=== PATIENT | female | born 1955 | race Caucasian/White ===

== ENCOUNTER 2017-01-22 10:09 | Inpatient (IN) ==
[2017-01-22] MEDS ORDERED: 0.9 % Sodium Chloride 1,000 ML IVC ONE (10:23)
--- NOTE | 2017-01-22 10:42 | Emergency Department Note ---
START Narrative - START START: START NOTE 61-year-old female history of multiple sclerosis currently evaluated by neurology at [facility] who presents to the ER due to altered mental status. She was brought in in a wheelchair by her . The patient is in stable condition awaiting evaluation by the arriving day team of Dr. Wong and Dr. Miles.
--- NOTE | 2017-01-22 11:03 | Emergency Department Note ---
Disposition Clinical Impression: UTI (urinary tract infection) Disposition: Admitted As Inpatient Condition: Fair Time of Disposition: 13:10 General Adult HPI - General Chief complaint: ED Altered Mental Status Stated complaint: AMS Time Seen by Provider: 01/22/17 10:20 Source: patient, family Limitations: no limitations Nursing Notes Reviewed: Yes Vital Signs Reviewed: Yes - History of Present Illness HPI Narrative: Mrs. Ndiaye, 61yo female, presents from home with bedside with multiple concerns. Patient has a history of MS followed by [facility] neurology, recurrent UTI followed by urologist Dr. Ndiaye, combined systolic and diastolic CHF. 9 days ago, patient was prescribed empiric augmentin. 8 days ago, patient began having visual hallucinations. 6 days ago, stopped the augmentin, after which the patient began improving (reduced hallucination) 3-4 days ago, re-started the augmentin, after which the hallucination resumed. Amidst the above, patient has not had a bowel movement in 5 days. Prior to that , her BMs were hard and painful. Amidst the above, and patient note she "hasn't been the same" since hospitalization in October wherein she had facial droop and an exacerbation of her CHF. Amidst the above, notes the patient was carbamazepine toxic. She has not been taking it recently, however. PMH: Hypertension, multiple sclerosis, atrial fibrillation, combined systolic and diastolic congestive heart failure, known bundle branch block ROS: Positive: Visual hallucinations, subjective fever, chills, abdominal pains, constipation, paroxysmal palpitations Negative: Chest pain, palpitations, fall or trauma, headache, changes in vision , worsening weakness Pain Scale: 5 - Related Data Home Medications Medication Instructions Recorded Confirmed Albuterol Sulfate [Albuterol 2 puff IH Q4H PRN 11/04/16 01/22/17 Inhaler] Amantadine [Symmetrel] 100 mg PO BID 11/04/16 01/22/17 Baclofen 20 mg PO TID 11/04/16 01/22/17 Benazepril HCl [Lotensin] 40 mg PO DAILY 11/04/16 01/22/17 BuPROPion XL (24 HR) [Wellbutrin 150 mg PO DAILY 11/04/16 01/22/17 XL] Calcium Carbonate [Coral Calcium] 1,170 mg PO BID 11/04/16 01/22/17 Dimethyl Fumarate [Tecfidera] 240 mg PO BID 11/04/16 01/22/17 FLUoxetine HCl [PROzac] 20 mg PO DAILY 11/04/16 01/22/17 Ibuprofen [Motrin] 800 mg PO BID PRN 11/04/16 01/22/17 Loratadine [Claritin] 10 mg PO DAILY 11/04/16 01/22/17 Potassium Chloride [K-Tab ER] 20 meq PO DAILY 01/22/17 01/22/17 Previous Rx's Medication Instructions Recorded Apixaban [Eliquis] 5 mg PO BID #60 tablet 11/09/16 Aspirin Enteric Coated [Aspirin EC] 81 mg PO DAILY tablet. 11/09/16 Atorvastatin [Lipitor] 40 mg PO HS tablet 11/09/16 Furosemide [Lasix] 40 mg PO BIDDIURETIC #60 tablet 11/09/16 Lisinopril [Zestril] 20 mg PO DAILY tablet 11/09/16 Metoprolol XL (24 HR) Succ [Toprol 25 mg PO DAILY #30 tab.er.24h 11/09/16 Xl] Allergies Allergy/AdvReac Type Severity Reaction Status Date / Time latex Allergy Hives Verified 01/22/17 10:16 All systems ED: reviewed and negative except as stated. Review of Systems: As Per HPI Past Medical History - Past Medical History Attestation: Yes The following information was validated with the patient. Medical history: Reports: hypertension, kidney stones Surgical history: Reports: non-contributory Psychiatric history: Reports: no psych history - Social History Smoking Status: Former smoker Smokeless Tobacco Status: No Alcohol use: Reports: none Drug use: Reports: none Physical Exam Vital Signs Reviewed General: Patient is alert, oriented, and in no acute distress. HEENT: No facial asymmetry. Head is normocephalic and atraumatic. PERRLA, EOMI. oral mucosa tacky. Trachea midline. Cardiovascular: Heart regular rate and rhythm without clicks, rubs, gallops, or murmurs. No JVD. PMI nondisplaced. Respiratory: Symmetric chest rise with poor respiratory effort. Bilateral breath sounds are clear without wheezing, crackles, or rhonchi. Abdomen: Bowel sounds present normoactive x-4 quadrants. Abdomen is soft, nondistended. Mild diffuse generalized tenderness. No rebound or guarding. Pelvic exam: External genitalia with swollen slightly erythematous labia majora. Scant blood at external urethral meatus. White substance in vaginal vestibule consistent with yeast infection. Speculum exam showed no blood in vaginal vault with no blood from cervical os. Cultures obtained. Musculoskeletal: Right upper extremity is contracted which is baseline per . Neuro: Cranial nerves II through XII without deficit. Sensation light touch intact. GCS 15. Alert and oriented 4. Skin: Warm, dry, intact. Psych: Patient's affect is appropriate for situation. - General Limitations: no limitations General appearance: alert Course Course Narrative: Chart check: Echocardiogram 01/18/17 Indication-shortness of breath Impressions: LVEF 20-25%. Mildly dilated left ventricle. Severe global left ventricular systolic function. Atypical septal motion consistent with bundle branch block. Normal RV structure and function. Valves not well visualized. Left heart catheter 11/08/16: [id number] Impressions: Moderate three-vessel CAD. LVEF 20%. Nonischemic cardiomyopathy. MRI of 11/05/16: [id number] facial droop Findings-degraded by motion. Impression-no acute infarcts. Trace subdural hematomas over both parietal convexities. Patient presents in no acute distress. She is SIRS (+) on intake vitals by tachycardia and tachypnea. We will begin sepsis workup. Unable to find prior carbamazepine level or the date of the toxicity. Will repeat carbamazepine level. Patient and defer CT had and abdomen/pelvis at this time to minimize her radiation. Vital Signs Temperature 98 F 01/22/17 10:11 Pulse Rate 110 01/22/17 10:11 Respiratory Rate 20 01/22/17 10:11 Blood Pressure 127/77 01/22/17 10:11 O2 Sat by Pulse Oximetry 88 01/22/17 10:11 Temperature 97.3 F L 01/22/17 14:16 Pulse Rate 61 01/22/17 14:16 Respiratory Rate 16 01/22/17 14:16 Blood Pressure 111/71 01/22/17 14:16 O2 Sat by Pulse Oximetry 100 01/22/17 12:57 Oxygen Delivery Oxygen Delivery Room Air Medical Decision Making - Medical Records Medical records reviewed: Yes I reviewed the patient's medical records. - Lab Data Result diagrams: 01/22/17 10:52 01/22/17 10:52 Lab Results 01/22/17 01/22/17 01/22/17 Range/Units 10:52 10:52 10:52 WBC 12.1 H (4.3-11.1) K/mcL RBC 4.33 (3.82-4.97) M/mcL Hgb 12.9 (11.5-15.4) g/dL Hct 40.5 (35.3-44.9) % MCV 93.5 (83.0-100.0) fL MCH 29.8 (28.0-33.3) pg MCHC 31.9 (31.6-35.5) g/dL RDW 14.9 H (11.5-14.5) % Plt Count 309 (140-400) K/mcL MPV 9.6 (9.4-12.4) fL Immature Gran % 1.2 (0-4) % Seg Neutrophils % 71.9 % Lymphocytes % 13.3 % Monocytes % 7.4 % Eosinophils % 5.0 % Basophils % 1.2 % Neutrophils # 8.7 (1.6-8.9) K/mcL Lymphocytes # 1.6 (0.6-4.6) K/mcL Monocytes # 0.9 (0.0-1.3) K/mcL Eosinophils # 0.6 (0.0-0.6) K/mcL Basophils # 0.1 (0.0-0.2) K/mcL PT 15.0 H (9.4-12.1) Seconds INR 1.4 APTT 44.1 H (26.0-36.0) Seconds Sodium 145 (136-145) mEq/L Potassium 4.5 (3.5-4.5) mEq/L Chloride 102 (98-109) mEq/L Carbon Dioxide 33 H (19-29) mEq/L BUN 20 (7-20) mg/dL Creatinine 0.64 (0.57-1.11) mg/dL Est GFR ( Amer) > 60 (> 60) Est GFR (Non-Af Amer) > 60 (> 60) BUN/Creatinine Ratio 31 H (6-26) Glucose 120 H (70-99) mg/dL Calculated Osmolality 304 H (280-300) Lactic Acid (0.5-2.2) mmol/L Calcium 10.5 (8.6-10.8) mg/dL Magnesium (1.6-2.6) mg/dL Total Bilirubin 0.4 (0.2-1.2) mg/dL Direct Bilirubin 0.2 (0.0-0.5) mg/dL Indirect Bilirubin 0.2 (0.0-1.2) mg/dL AST 28 (5-34) Units/L ALT 45 (0-55) Units/L Alkaline Phosphatase 117 (38-126) Units/L Troponin I (0-0.03) ng/mL Serum Total Protein 8.2 (6.0-8.3) g/dL Albumin 3.5 (3.5-5.0) g/dL Globulin 4.7 H (2.4-3.5) g/dL Albumin/Globulin Ratio 0.7 L (1.1-2.2) Lipase (8-78) Units/L Urine Color (Yellow) Urine Clarity (Clear) Urine pH (5.0-8.0) pH Units Ur Specific [place] (1.010-1.025) Urine Protein (Neg-Trace) mg/dL Urine Glucose (UA) (Normal) mg/dL Urine Ketones (Negative) mg/dL Urine Blood (Negative) Urine Nitrite (Negative) Urine Bilirubin (Negative) Urine Urobilinogen (Normal) mg/dL Ur Leukocyte Esterase (Negative) Urine Microscopic RBC (0-3) per hpf Urine Microscopic WBC (0-3) per hpf Ur Squamous Epith Cells (None-Few) per lpf Urine Bacteria (None-Few) per hpf Ur Culture Indicated? (NO) Urine Opiates Screen (Slgtyo=934) ng/mL Ur Barbiturates Screen (Bpoibg=002) ng/mL Carbamazepine (4.0-12.0) mcg/mL Ur Phencyclidine Scrn (Cutoff=25) ng/mL Ur Amphetamines Screen (Hczpow=6716) ng/mL U Benzodiazepines Scrn (Gnwcza=658) ng/mL Urine Cocaine Screen (Cutoff= 300) ng/mL U Marijuana (THC) Screen (Cutoff = 50) ng/mL Ethyl Alcohol < 10 (0-10) mg/dL Balbina species DNA (Not Detect) Chlam trachomat DNA PCR (Not Detect) Gardnerella DNA Probe (Not Detect) N.gonorrhoeae DNA (PCR) (Not Detect) Trichomonas DNA Probe (Not Detect) 01/22/17 01/22/17 01/22/17 Range/Units 10:52 10:52 11:20 WBC (4.3-11.1) K/mcL RBC (3.82-4.97) M/mcL Hgb (11.5-15.4) g/dL Hct (35.3-44.9) % MCV (83.0-100.0) fL MCH (28.0-33.3) pg MCHC (31.6-35.5) g/dL RDW (11.5-14.5) % Plt Count (140-400) K/mcL MPV (9.4-12.4) fL Immature Gran % (0-4) % Seg Neutrophils % % Lymphocytes % % Monocytes % % Eosinophils % % Basophils % % Neutrophils # (1.6-8.9) K/mcL Lymphocytes # (0.6-4.6) K/mcL Monocytes # (0.0-1.3) K/mcL Eosinophils # (0.0-0.6) K/mcL Basophils # (0.0-0.2) K/mcL PT (9.4-12.1) Seconds INR APTT (26.0-36.0) Seconds Sodium (136-145) mEq/L Potassium (3.5-4.5) mEq/L Chloride (98-109) mEq/L Carbon Dioxide (19-29) mEq/L BUN (7-20) mg/dL Creatinine (0.57-1.11) mg/dL Est GFR ( Amer) (> 60) Est GFR (Non-Af Amer) (> 60) BUN/Creatinine Ratio (6-26) Glucose (70-99) mg/dL Calculated Osmolality (280-300) Lactic Acid 2.0 (0.5-2.2) mmol/L Calcium (8.6-10.8) mg/dL Magnesium (1.6-2.6) mg/dL Total Bilirubin (0.2-1.2) mg/dL Direct Bilirubin (0.0-0.5) mg/dL Indirect Bilirubin (0.0-1.2) mg/dL AST (5-34) Units/L ALT (0-55) Units/L Alkaline Phosphatase (38-126) Units/L Troponin I 0.05 H* (0-0.03) ng/mL Serum Total Protein (6.0-8.3) g/dL Albumin (3.5-5.0) g/dL Globulin (2.4-3.5) g/dL Albumin/Globulin Ratio (1.1-2.2) Lipase (8-78) Units/L Urine Color Yellow (Yellow) Urine Clarity Turbid A (Clear) Urine pH 7.0 (5.0-8.0) pH Units Ur Specific [place] 1.020 (1.010-1.025) Urine Protein 30 H (Neg-Trace) mg/dL Urine Glucose (UA) Normal (Normal) mg/dL Urine Ketones Negative (Negative) mg/dL Urine Blood Large H (Negative) Urine Nitrite Positive A (Negative) Urine Bilirubin Negative (Negative) Urine Urobilinogen Normal (Normal) mg/dL Ur Leukocyte Esterase Large H (Negative) Urine Microscopic RBC 0-3 (0-3) per hpf Urine Microscopic WBC TNTC H (0-3) per hpf Ur Squamous Epith Cells Many H (None-Few) per lpf Urine Bacteria Moderate H (None-Few) per hpf Ur Culture Indicated? YES A (NO) Urine Opiates Screen (Kefvcc=259) ng/mL Ur Barbiturates Screen (Nljref=997) ng/mL Carbamazepine (4.0-12.0) mcg/mL Ur Phencyclidine Scrn (Cutoff=25) ng/mL Ur Amphetamines Screen (Rgdvgr=9686) ng/mL U Benzodiazepines Scrn (Aweebv=426) ng/mL Urine Cocaine Screen (Cutoff= 300) ng/mL U Marijuana (THC) Screen (Cutoff = 50) ng/mL Ethyl Alcohol (0-10) mg/dL Balbina species DNA (Not Detect) Chlam trachomat DNA PCR (Not Detect) Gardnerella DNA Probe (Not Detect) N.gonorrhoeae DNA (PCR) (Not Detect) Trichomonas DNA Probe (Not Detect) 01/22/17 01/22/17 01/22/17 Range/Units 11:20 11:38 11:38 WBC (4.3-11.1) K/mcL RBC (3.82-4.97) M/mcL Hgb (11.5-15.4) g/dL Hct (35.3-44.9) % MCV (83.0-100.0) fL MCH (28.0-33.3) pg MCHC (31.6-35.5) g/dL RDW (11.5-14.5) % Plt Count (140-400) K/mcL MPV (9.4-12.4) fL Immature Gran % (0-4) % Seg Neutrophils % % Lymphocytes % % Monocytes % % Eosinophils % % Basophils % % Neutrophils # (1.6-8.9) K/mcL Lymphocytes # (0.6-4.6) K/mcL Monocytes # (0.0-1.3) K/mcL Eosinophils # (0.0-0.6) K/mcL Basophils # (0.0-0.2) K/mcL PT (9.4-12.1) Seconds INR APTT (26.0-36.0) Seconds Sodium (136-145) mEq/L Potassium (3.5-4.5) mEq/L Chloride (98-109) mEq/L Carbon Dioxide (19-29) mEq/L BUN (7-20) mg/dL Creatinine (0.57-1.11) mg/dL Est GFR ( Amer) (> 60) Est GFR (Non-Af Amer) (> 60) BUN/Creatinine Ratio (6-26) Glucose (70-99) mg/dL Calculated Osmolality (280-300) Lactic Acid (0.5-2.2) mmol/L Calcium (8.6-10.8) mg/dL Magnesium 2.1 (1.6-2.6) mg/dL Total Bilirubin (0.2-1.2) mg/dL Direct Bilirubin (0.0-0.5) mg/dL Indirect Bilirubin (0.0-1.2) mg/dL AST (5-34) Units/L ALT (0-55) Units/L Alkaline Phosphatase (38-126) Units/L Troponin I (0-0.03) ng/mL Serum Total Protein (6.0-8.3) g/dL Albumin (3.5-5.0) g/dL Globulin (2.4-3.5) g/dL Albumin/Globulin Ratio (1.1-2.2) Lipase 38 (8-78) Units/L Urine Color (Yellow) Urine Clarity (Clear) Urine pH (5.0-8.0) pH Units Ur Specific [place] (1.010-1.025) Urine Protein (Neg-Trace) mg/dL Urine Glucose (UA) (Normal) mg/dL Urine Ketones (Negative) mg/dL Urine Blood (Negative) Urine Nitrite (Negative) Urine Bilirubin (Negative) Urine Urobilinogen (Normal) mg/dL Ur Leukocyte Esterase (Negative) Urine Microscopic RBC (0-3) per hpf Urine Microscopic WBC (0-3) per hpf Ur Squamous Epith Cells (None-Few) per lpf Urine Bacteria (None-Few) per hpf Ur Culture Indicated? (NO) Urine Opiates Screen Negative (Hquvio=828) ng/mL Ur Barbiturates Screen Negative (Pwybxg=847) ng/mL Carbamazepine 0.0 L (4.0-12.0) mcg/mL Ur Phencyclidine Scrn Negative (Cutoff=25) ng/mL Ur Amphetamines Screen Negative (Wtqocb=5093) ng/mL U Benzodiazepines Scrn Negative (Wnirmg=708) ng/mL Urine Cocaine Screen Negative (Cutoff= 300) ng/mL U Marijuana (THC) Screen Negative (Cutoff = 50) ng/mL Ethyl Alcohol (0-10) mg/dL Balbina species DNA (Not Detect) Chlam trachomat DNA PCR (Not Detect) Gardnerella DNA Probe (Not Detect) N.gonorrhoeae DNA (PCR) (Not Detect) Trichomonas DNA Probe (Not Detect) 01/22/17 Range/Units 13:00 WBC (4.3-11.1) K/mcL RBC (3.82-4.97) M/mcL Hgb (11.5-15.4) g/dL Hct (35.3-44.9) % MCV (83.0-100.0) fL MCH (28.0-33.3) pg MCHC (31.6-35.5) g/dL RDW (11.5-14.5) % Plt Count (140-400) K/mcL MPV (9.4-12.4) fL Immature Gran % (0-4) % Seg Neutrophils % % Lymphocytes % % Monocytes % % Eosinophils % % Basophils % % Neutrophils # (1.6-8.9) K/mcL Lymphocytes # (0.6-4.6) K/mcL Monocytes # (0.0-1.3) K/mcL Eosinophils # (0.0-0.6) K/mcL Basophils # (0.0-0.2) K/mcL PT (9.4-12.1) Seconds INR APTT (26.0-36.0) Seconds Sodium (136-145) mEq/L Potassium (3.5-4.5) mEq/L Chloride (98-109) mEq/L Carbon Dioxide (19-29) mEq/L BUN (7-20) mg/dL Creatinine (0.57-1.11) mg/dL Est GFR ( Amer) (> 60) Est GFR (Non-Af Amer) (> 60) BUN/Creatinine Ratio (6-26) Glucose (70-99) mg/dL Calculated Osmolality (280-300) Lactic Acid (0.5-2.2) mmol/L Calcium (8.6-10.8) mg/dL Magnesium (1.6-2.6) mg/dL Total Bilirubin (0.2-1.2) mg/dL Direct Bilirubin (0.0-0.5) mg/dL Indirect Bilirubin (0.0-1.2) mg/dL AST (5-34) Units/L ALT (0-55) Units/L Alkaline Phosphatase (38-126) Units/L Troponin I (0-0.03) ng/mL Serum Total Protein (6.0-8.3) g/dL Albumin (3.5-5.0) g/dL Globulin (2.4-3.5) g/dL Albumin/Globulin Ratio (1.1-2.2) Lipase (8-78) Units/L Urine Color (Yellow) Urine Clarity (Clear) Urine pH (5.0-8.0) pH Units Ur Specific [place] (1.010-1.025) Urine Protein (Neg-Trace) mg/dL Urine Glucose (UA) (Normal) mg/dL Urine Ketones (Negative) mg/dL Urine Blood (Negative) Urine Nitrite (Negative) Urine Bilirubin (Negative) Urine Urobilinogen (Normal) mg/dL Ur Leukocyte Esterase (Negative) Urine Microscopic RBC (0-3) per hpf Urine Microscopic WBC (0-3) per hpf Ur Squamous Epith Cells (None-Few) per lpf Urine Bacteria (None-Few) per hpf Ur Culture Indicated? (NO) Urine Opiates Screen (Zttoka=115) ng/mL Ur Barbiturates Screen (Silmmo=408) ng/mL Carbamazepine (4.0-12.0) mcg/mL Ur Phencyclidine Scrn (Cutoff=25) ng/mL Ur Amphetamines Screen (Mxtbsf=4819) ng/mL U Benzodiazepines Scrn (Piqevj=415) ng/mL Urine Cocaine Screen (Cutoff= 300) ng/mL U Marijuana (THC) Screen (Cutoff = 50) ng/mL Ethyl Alcohol (0-10) mg/dL Balbina species DNA DETECTED A (Not Detect) Chlam trachomat DNA PCR NOT DETECTED (Not Detect) Gardnerella DNA Probe Not Detected (Not Detect) N.gonorrhoeae DNA (PCR) NOT DETECTED (Not Detect) Trichomonas DNA Probe Not Detected (Not Detect) - EKG Data EKG #1 EKG attestation: Yes I reviewed and interpreted this EKG. EKG results narrative: EKG dated 22 Jan 2017 at 10:33 interpreted as Sinus rhythm with rate of 75. Baseline artifact. Intervals of MO 158, QRS was 78, QT/QTc 457/46. Extreme left axis. Appropriately discordant left bundle branch block also present on compared to EKG. interpreted to previous EKG dated 11/04/2016 show no acute ischemic changes or comparison. Attestation Statement - Attestation Attestation: I examined this patient and my medical decision-making was reviewed with the Resident Physician. I agree with the documented findings, disposition and treatment plan as described except to the extent set forth below. 61-year-old female presents ED because of altered mental status, urinary symptoms and generalized malaise. She was recently found to have a UTI and was started on Augmentin. However, no cultures were done. After starting the Augmentin she started developing hallucinations and they stopped it for a few days. The hallucinations improved but upon resuming the Augmentin, the hallucinations recurred. She has had periods of confusion. Also complains of constipation and hesitancy to urinate. No headaches. She has a history of multiple sclerosis and is bound to a wheelchair. No significant change in her baseline weakness. She was admitted to the hospital to have months ago due to facial droop and this was suspected due to the EMS. does report low- grade fevers. Patient is awake, alert and talkative. Pupils are reactive to light. Face is symmetric. He is membranes are very dry. Neck is supple without adenopathy. Chest is clear to auscultation bilaterally. No wheezes appreciated. Cardiac exam regular, tachycardic. Abdomen soft nondistended nontender. Normal bowel sounds throughout. No CVA tenderness. Contractures are noted of the arms and legs. She was given aggressive IV fluids. Urinalysis was remarkable for nitrites and leukocytes. Blood and urine were sent for culture. She is given IV Rocephin along with IV fluids and will be admitted for further workup and treatment.
[2017-01-22 11:05] LABS: INR 1.4
[2017-01-22 11:06] LABS: Basophils # 0.1 K/mcL (0.0-0.2); Basophils % 1.2 %; Eosinophils # 0.6 K/mcL (0.0-0.6); Hematocrit 40.5 % (35.3-44.9); Hemoglobin 12.9 g/dL (11.5-15.4); Immature Granulocytes % 1.2 % (0-4); Lymphocytes # 1.6 K/mcL (0.6-4.6); Lymphocytes % 13.3 %; Mean Corpuscular HGB Conc 31.9 g/dL (31.6-35.5); Mean Corpuscular Hemoglobin 29.8 pg (28.0-33.3); Mean Corpuscular Volume 93.5 fL (83.0-100.0); Mean Platelet Volume 9.6 fL (9.4-12.4); Monocytes # 0.9 K/mcL (0.0-1.3); Monocytes % 7.4 %; Neutrophils # 8.7 K/mcL (1.6-8.9); Platelet Count 309 K/mcL (140-400); Red Blood Count 4.33 M/mcL (3.82-4.97); Red Cell Distribution Width 14.9 % (11.5-14.5); Segmented Neutrophils % 71.9 %
[2017-01-22 11:08] LABS: Activated Partial Thrombo Time 44.1 Seconds (26.0-36.0)
[2017-01-22 11:16] LABS: Alanine Aminotransferase 45 Units/L (0-55); Albumin 3.5 g/dL (3.5-5.0); Albumin/Globulin Ratio 0.7 (1.1-2.2); Alkaline Phosphatase 117 Units/L (38-126); Aspartate Amino Transferase 28 Units/L (5-34); BUN/Creatinine Ratio 31 (6-26); Bilirubin,Direct 0.2 mg/dL (0.0-0.5); Bilirubin,Indirect 0.2 mg/dL (0.0-1.2); Bilirubin,Total 0.4 mg/dL (0.2-1.2); Blood Urea Nitrogen 20 mg/dL (7-20); Calcium 10.5 mg/dL (8.6-10.8); Carbon Dioxide 33 mEq/L (19-29); Chloride 102 mEq/L (98-109); Ethanol < 10 mg/dL (0-10); Globulin 4.7 g/dL (2.4-3.5); Glucose 120 mg/dL (70-99); Osmolality,Calculated 304 (280-300); Potassium 4.5 mEq/L (3.5-4.5); Sodium 145 mEq/L (136-145); Total Protein 8.2 g/dL (6.0-8.3); eGFR For African Americans > 60 (> 60); eGFR For Non-African Americans > 60 (> 60)
[2017-01-22 11:29] LABS: Bilirubin,Urine Negative (Negative); Blood,Urine Large (Negative); Clarity,Urine Turbid (Clear); Color,Urine Yellow (Yellow); Glucose,Urine (UA) Normal (Normal); Ketones,Urine Negative (Negative); Leukocyte Esterase,Urine Large (Negative); Nitrite,Urine Positive (Negative); Protein,Urine 30 mg/dL (Neg-Trace); Urobilinogen,Urine Normal (Normal)
[2017-01-22 11:31] LABS: Bacteria,Urine Moderate per hpf (None-Few); Squamous Epithelial Cell,Urine Many per lpf (None-Few); WBC,Urine TNTC per hpf (0-3)
[2017-01-22 11:35] LABS: RBC,Urine 0-3 per hpf (0-3)
[2017-01-22 11:52] LABS: Amphetamine Screen,Urine Negative ng/mL (Cutoff=1000); Barbiturate Screen,Urine Negative ng/mL (Cutoff=200); Benzodiazepines Screen,Urine Negative ng/mL (Cutoff=200); Cannabinoid Screen,Urine Negative ng/mL (Cutoff = 50); Cocaine Screen,Urine Negative ng/mL (Cutoff= 300); Opiate Screen,Urine Negative ng/mL (Cutoff=300); Phencyclidine Screen,Urine Negative ng/mL (Cutoff=25)
[2017-01-22] MEDS ORDERED: cefTRIAXone 2,000 MG in Water for inj. (sterile) 20 ML IVP ONE (11:54)
[2017-01-22 12:40] LABS: Magnesium 2.1 mg/dL (1.6-2.6)
[2017-01-22 13:53] LABS: Candida DNA ***DETECTED*** (Not Detect); Gardnerella DNA Not Detected (Not Detect); Trichomonas DNA Not Detected (Not Detect)
[2017-01-22] MEDS ORDERED: Naloxone 0.4 MG/ML INJ IVP PRN (15:41)
--- NOTE | 2017-01-22 17:08 | Internal Med History&Physical ---
Date of Encounter: 01/22/17 Time of Encounter: 16:00 Assessment and Plan (1) Acute encephalopathy Current visit: No Status: Acute Patient has been experiencing hallucinations off and on for the past week. Suspect this may be related to medication or even possibly infectious process because she does not UTI. We will obtain a CT scan to rule out any possible intracranial abnormalities. Patient denies any trauma to her head, patient is on Eliquis-possible bleed Neuro checks (2) UTI (urinary tract infection) Current visit: Yes Status: Acute Qualifiers: Urinary tract infection type: acute cystitis Hematuria presence: with hematuria Qualified Code(s): N30.01 - Acute cystitis with hematuria (3) Multiple sclerosis Current visit: No Status: Chronic Patient has a history of multiple sclerosis she is wheelchair bound she does follow with neurology at [facility]. We will continue to follow up as an outpatient in consult neurology as needed (4) Atrial fibrillation Current visit: No Status: Chronic Patient was recently diagnosed with atrial fibrillation as she has sinus rhythm controlled rate. We will continue with beta ayan as well as eliquis Qualifiers: Atrial fibrillation type: paroxysmal Qualified Code(s): I48.0 - Paroxysmal atrial fibrillation (5) DVT prophylaxis Current visit: Yes Status: Acute Patient is Eliis Internal Medicine - H&P: HPI Chief complaint: AMS Admitted From: Emergency Dept Plans for Post Hospital Care: Home History of present illness: Ms. Ndiaye is a 61 year old female past medical history of a MS followed by [facility] neurology recurrent UTIs followed by urologist combined systolic and diastolic heart failure and hypertension A. fib Information is obtained from mother who is at bedside and medical records due to patient's altered cognition. Approximately 9 days ago patient was experiencing urinary symptoms in general is made malaise she was diagnosed with UTI and was started on Augmentin. Once she was started on Augmentin she began to experience visual hallucinations after approximately 2 days of medication stopped the Augmentin and her hallucinations reduced. He then resumed the Augmentin again and then she began to hallucinate again. She also has not had any bowel movements for approximate 5 days. No fevers chills abdominal pain nausea vomiting. Patient was admitted to this hospital approximately a month ago and at that time she did have facial droop as well as A. fib RVR. She was initiated on beta ayan as well as pelvic was for anticoagulation.. She was seen by neurology and was diagnosed with nontraumatic subdural hygroma According to ER records patient did have a lactate in 2 urinalysis was positive for UTI slightly elevated leukocytosis. She has been admitted for further workup and evaluation. Presently patient is alert and oriented 3 however she does make inappropriate comments she thinks that the nurse is covered in Milena lights and wants to know why I do not lock her wheelchair so she does not fall out. Neurologically patient does follow commands. She has lower extremity weakness which is chronic and right-sided weakness which is chronic. There is no facial droop at this time we will obtain CT of her head to rule out possible stroke. I did speak with patient's mother who is at bedside in his feet power of gauge operator who agreed to CT scan. Past Med Surg Social Fam HX - Past Medical History Medical history: hypertension, kidney stones Psychiatric history: no psych history - Past Surgical History Surgical History: non-contributory - Social History Smoking Status: Former smoker Smokeless Tobacco Status: No Alcohol use: none Drug use: none - Additional Family History Additional family history: unknown- reviewed Internal Medicine - H&P: Meds Albuterol Sulfate [Albuterol Inhaler] 2 puff IH Q4H PRN 11/04/16 [History] Amantadine [Symmetrel] 100 mg PO BID 11/04/16 [History] Baclofen 20 mg PO TID 11/04/16 [History] Benazepril HCl [Lotensin] 40 mg PO DAILY 11/04/16 [History] BuPROPion XL (24 HR) [Wellbutrin XL] 150 mg PO DAILY 11/04/16 [History] Calcium Carbonate [Coral Calcium] 1,170 mg PO BID 11/04/16 [History] Dimethyl Fumarate [Tecfidera] 240 mg PO BID 11/04/16 [History] FLUoxetine HCl [PROzac] 20 mg PO DAILY 11/04/16 [History] Ibuprofen [Motrin] 800 mg PO BID PRN 11/04/16 [History] Loratadine [Claritin] 10 mg PO DAILY 11/04/16 [History] Apixaban [Eliquis] 5 mg PO BID #60 tablet 11/09/16 [Rx] Aspirin Enteric Coated [Aspirin EC] 81 mg PO DAILY tablet. 11/09/16 [Rx] Atorvastatin [Lipitor] 40 mg PO HS tablet 11/09/16 [Rx] Furosemide [Lasix] 40 mg PO BIDDIURETIC #60 tablet 11/09/16 [Rx] Lisinopril [Zestril] 20 mg PO DAILY tablet 11/09/16 [Rx] Metoprolol XL (24 HR) Succ [Toprol Xl] 25 mg PO DAILY #30 tab.er.24h 11/09/16 [ Rx] Potassium Chloride [K-Tab ER] 20 meq PO DAILY 01/22/17 [History] 3 Allergy/AdvReac Type Severity Reaction Status Date / Time latex Allergy Hives Verified 01/22/17 10:16 ROS unobtainable: due to mental status All Systems PM: A 10-system review of systems was performed and is negative for pertinent findings except as documented above in the HPI. - Constitutional Vitals: Temp Pulse Resp BP Pulse Ox 97.3 F L 61 16 111/71 100 01/22/17 14:16 01/22/17 14:16 01/22/17 14:16 01/22/17 14:16 01/22/17 12:57 General appearance: Present: A&O X 3 - Head Head exam: Present: atraumatic, normocephalic - Eye Eye exam: Present: PERRL, conjuntiva pink, sclera anicteric Pupils: Present: PERRL - Neck Neck exam general surgery: Present: supple, trachea midline. Absent: lymphadenopathy - Respiratory Respiratory exam: Present: CTAB. Absent: accessory muscle use, rales, rhonchi, wheezes - Cardiovascular Cardiovascular exam: Present: RRR, +S1, +S2. Absent: diastolic murmur, gallop, rubs, systolic murmur - GI/Abdominal GI/Abdominal exam: Present: normal bowel sounds, soft, no peritoneal signs. Absent: distended, tenderness - Extremities Exam Extremities exam: Present: warm, radial pulses palpable and symmetrical. Absent : calf tenderness, cyanotic, pedal edema - Neurological Exam Neurological exam: Present: altered, CN II-XII intact, oriented X3. Absent: pronater drift, facial droop, speech deficit Additional comments: Patient has lower extremity weakness as well as right-sided weakness which is residual from MS - Skin Skin exam: Present: dry, intact Internal Med - H&P Results - Labs CBC & Chem 7: 01/22/17 10:52 01/22/17 10:52 - EKG Data EKG shows normal: sinus rhythm - EKG Data Prior EKG available for review: yes When compared to previous EKG: there is no significant change EKG comments: 01/22/17 17:33 With left bundle branch block which was present on previous EKG - Diagnostic Studies Other Images Additional comments: Chest X-Ray 01/22/17 10:23 IMPRESSION: No active cardiopulmonary disease D/ / Carlos Christina MD / Carlos Christina MD Interpreting Provider: Carlos Christina MD
--- NOTE | 2017-01-22 18:47 | Event Note ---
Date of Encounter: 01/22/17 Time of Encounter: 17:00 Discussed with ONOFRE and agree with assessment and plan Patient with mild encephalopathy and suspect secondary to UTI and ordered CT of head to rule out any intracranial etiology which was done with further recommendations for MRI due to indeterminate study; MRI pending Continue IV antibiotics for UTI.
[2017-01-22] MEDS: APIXABAN 5 MG TABLET PO SCH (22:58)
[2017-01-22] MEDS ORDERED: Baclofen 10 MG TABLET PO PRN (23:13)
[2017-01-22] MEDS: risperiDONE 0.25 MG TABLET PO SCH (23:49)
[2017-01-22] MEDS: TECFIDERA PO SCH (23:52)
[2017-01-23] MEDS ORDERED: Melatonin 3 MG TABLET PO ONE (00:25)
[2017-01-23 01:08] LABS: Basophils # 0.1 K/mcL (0.0-0.2); Basophils % 0.7 %; Eosinophils # 0.7 K/mcL (0.0-0.6); Eosinophils % 6.3 %; Hematocrit 31.6 % (35.3-44.9); Immature Granulocytes % 1.1 % (0-4); Lymphocytes # 1.4 K/mcL (0.6-4.6); Lymphocytes % 13.4 %; Mean Corpuscular Hemoglobin 29.7 pg (28.0-33.3); Mean Corpuscular Volume 92.9 fL (83.0-100.0); Mean Platelet Volume 9.6 fL (9.4-12.4); Monocytes % 9.3 %; Neutrophils # 7.2 K/mcL (1.6-8.9); Platelet Count 226 K/mcL (140-400); Red Cell Distribution Width 14.9 % (11.5-14.5); Segmented Neutrophils % 69.2 %
[2017-01-23 01:11] LABS: Hemoglobin 10.1 g/dL (11.5-15.4)
[2017-01-23 01:20] LABS: BUN/Creatinine Ratio 29 (6-26); Blood Urea Nitrogen 15 mg/dL (7-20); Calcium 9.4 mg/dL (8.6-10.8); Carbon Dioxide 29 mEq/L (19-29); Chloride 106 mEq/L (98-109); Glucose 105 mg/dL (70-99); Osmolality,Calculated 295 (280-300); Sodium 142 mEq/L (136-145); eGFR For African Americans > 60 (> 60); eGFR For Non-African Americans > 60 (> 60)
[2017-01-23] MEDS: Metoprolol XL (24 HR) Succ 25 MG TAB.ER.24H PO SCH (08:55)
[2017-01-23] MEDS: Aspirin Enteric Coated 81 MG Tablet PO SCH (08:55)
[2017-01-23] MEDS: APIXABAN 5 MG TABLET PO SCH ×2 (08:56→21:15)
[2017-01-23] MEDS: Loratadine 10 MG TABLET PO SCH (08:56)
[2017-01-23] MEDS: TECFIDERA PO SCH ×2 (08:58→21:15)
[2017-01-23] MEDS ORDERED: cefTRIAXone 1,000 MG in Water for inj. (sterile) 10 ML IVP SCH (09:00)
[2017-01-23] MEDS ORDERED: Fluconazole 100 MG TABLET PO ONE (09:46)
--- NOTE | 2017-01-23 09:50 | Internal Med Progress Note ---
<Michael Durant - Last Filed: 01/23/17 09:48> Date of Encounter: 01/23/17 Time of Encounter: 09:48 - Assessment and plan (1) Acute encephalopathy Current Visit: No Status: Acute Assessment and plan: Appears to be resolved at this time. Patient is no longer having hallucinations. was at bedside who feels that she is back at her baseline. Likely related to urinary tract infection. (2) UTI (urinary tract infection) Current Visit: Yes Status: Acute Assessment and plan: Likely bacterial as well as evidence of candidiasis. Patient has history of multiple Escherichia coli infections that have been pansensitive. Patient also has PCR positive vaginal swab for Balbina. Appears to be clinically improving. Continue Rocephin. We will give a one-time dose of oral fluconazole. Await culture results and tailor antibiotics based on culture results. Qualifiers: Urinary tract infection type: acute cystitis Hematuria presence: with hematuria Qualified Code(s): N30.01 - Acute cystitis with hematuria (3) Multiple sclerosis Current Visit: No Status: Chronic Assessment and plan: Stable. Appears to be baseline. Continue home meds. (4) Atrial fibrillation Current Visit: No Status: Chronic Assessment and plan: Stable. Rate controlled. Continue beta ayan and Eliquis for anticoagulation. Qualifiers: Atrial fibrillation type: paroxysmal Qualified Code(s): I48.0 - Paroxysmal atrial fibrillation (5) DVT prophylaxis Current Visit: Yes Status: Acute Assessment and plan: Currently on Eliquis - Subjective Interval history: Patient seen and examined at bedside. She states that she feels much better today. She states that her hallucinations has resolved. She still having good urine output. She has fever, chills, chest pain, shortness of breath, confusion. - Constitutional Vitals: Temp Pulse Resp BP Pulse Ox 97.6 F 80 18 113/76 95 01/23/17 09:32 01/23/17 09:32 01/23/17 09:32 01/23/17 09:32 01/23/17 09:32 General appearance: Present: A&O X 3, pleasant, no acute distress - Respiratory Respiratory exam: Present: CTAB. Absent: rales, rhonchi, wheezes - Cardiovascular Cardiovascular exam: Present: RRR. Absent: gallop, rubs, systolic murmur - GI/Abdominal GI/Abdominal exam: Present: normal bowel sounds, soft. Absent: distended, tenderness - Neurological Exam Neurological exam: Present: alert, CN II-XII intact, oriented X3 - Psychiatric Psychiatric exam: Present: normal affect, normal mood Internal Medicine: Result - Labs CBC & Chem 7: 01/23/17 00:54 01/23/17 00:54 Labs: Short CBC 01/23/17 Range/Units 00:54 WBC 10.4 (4.3-11.1) K/mcL Hgb 10.1 L D (11.5-15.4) g/dL Hct 31.6 L (35.3-44.9) % Plt Count 226 (140-400) K/mcL Neutrophils # 7.2 (1.6-8.9) K/mcL BMP 01/23/17 00:54 Sodium 142 Potassium 4.0 Chloride 106 Carbon Dioxide 29 BUN 15 Creatinine 0.51 L Glucose 105 H Calcium 9.4 Cardiac Enzymes 01/22/17 01/23/17 01/23/17 Range/Units 17:56 00:54 06:08 Troponin I 0.05 H* 0.05 H* 0.05 H* (0-0.03) ng/mL - ABG Interpretation ABG results: PT/INR, D-dimer PT 15.0 Seconds (9.4-12.1) H 01/22/17 10:52 - Impressions Impressions Head CT 01/22/17 16:43 IMPRESSION: Multiple old infarcts. Multifocal small-vessel ischemic change No acute infarct or hemorrhage. Given the background of abnormal low attenuation, a subtle superimposed recent ischemic focus would be difficult to exclude without MRI D/ / Jesus Vickers / Jesus Vickers Interpreting Provider: Jesus Vickers Brain MRI 01/22/17 18:45 IMPRESSION: No acute infarct. Numerous areas of encephalomalacia from remote insults. There is also multifocal small-vessel ischemic change and gliosis. Mixed signal extra-axial collections are again noted in the posterior frontal parietal regions. These do not appear grossly changed allowing for differences in slice selection. These are likely chronic. D/ / Jesus Vickers / Jesus Vickers Interpreting Provider: Jesus Vickers Consult Discharge Plan - Plan Referrals: Aissatou Delgado MD [Primary Care Provider] - <Chapincito Hammond - Last Filed: 01/23/17 15:09> Date of Encounter: 01/23/17 - Constitutional Vitals: Temp Pulse Resp BP Pulse Ox 97.2 F L 75 18 95/64 95 01/23/17 11:03 01/23/17 11:03 01/23/17 11:03 01/23/17 11:03 01/23/17 11:03 Internal Medicine: Result - Labs CBC & Chem 7: 01/23/17 00:54 01/23/17 00:54 Labs: Short CBC 01/23/17 Range/Units 00:54 WBC 10.4 (4.3-11.1) K/mcL Hgb 10.1 L D (11.5-15.4) g/dL Hct 31.6 L (35.3-44.9) % Plt Count 226 (140-400) K/mcL Neutrophils # 7.2 (1.6-8.9) K/mcL BMP 01/23/17 00:54 Sodium 142 Potassium 4.0 Chloride 106 Carbon Dioxide 29 BUN 15 Creatinine 0.51 L Glucose 105 H Calcium 9.4 Cardiac Enzymes 01/22/17 01/23/17 01/23/17 Range/Units 17:56 00:54 06:08 Troponin I 0.05 H* 0.05 H* 0.05 H* (0-0.03) ng/mL - ABG Interpretation ABG results: PT/INR, D-dimer PT 15.0 Seconds (9.4-12.1) H 01/22/17 10:52 - Impressions Impressions Head CT 01/22/17 16:43 IMPRESSION: Multiple old infarcts. Multifocal small-vessel ischemic change No acute infarct or hemorrhage. Given the background of abnormal low attenuation, a subtle superimposed recent ischemic focus would be difficult to exclude without MRI D/ / Jesus Vickers / Jesus Vickers Interpreting Provider: Jesus Vickers Brain MRI 01/22/17 18:45 IMPRESSION: No acute infarct. Numerous areas of encephalomalacia from remote insults. There is also multifocal small-vessel ischemic change and gliosis. Mixed signal extra-axial collections are again noted in the posterior frontal parietal regions. These do not appear grossly changed allowing for differences in slice selection. These are likely chronic. D/ / Jesus Vickers / Jesus Vickers Interpreting Provider: Jesus Vickers - Attending Attestation I conducted a face to face diagnostic evaluation of this patient and my medical decision-making was reviewed with the Resident Physician, Dr. Michael Durant. I agree with the documented findings, disposition and treatment plan as described except to the extent set forth below: Patient is awake alert and oriented. Heart is regular. Lungs are clear. Abdomen soft and nontender. Continue with ceftriaxone for UTI. Follow-up culture and sensitivities. Resume diet.
[2017-01-23] MEDS: Furosemide 40 MG TABLET PO SCH ×2 (10:59→17:51)
[2017-01-23] MEDS: Lisinopril 20 MG TABLET PO SCH (11:00)
[2017-01-23] MEDS: Baclofen 10 MG TABLET PO SCH ×2 (17:51→21:15)
[2017-01-23] MEDS: risperiDONE 0.25 MG TABLET PO SCH (21:14)
[2017-01-24 03:18] LABS: Basophils # 0.1 K/mcL (0.0-0.2); Basophils % 0.7 %; Eosinophils # 0.5 K/mcL (0.0-0.6); Eosinophils % 4.8 %; Hematocrit 31.9 % (35.3-44.9); Hemoglobin 10.4 g/dL (11.5-15.4); Immature Granulocytes % 1.3 % (0-4); Lymphocytes # 1.3 K/mcL (0.6-4.6); Lymphocytes % 12.9 %; Mean Corpuscular HGB Conc 32.6 g/dL (31.6-35.5); Mean Corpuscular Hemoglobin 30.1 pg (28.0-33.3); Mean Corpuscular Volume 92.5 fL (83.0-100.0); Mean Platelet Volume 9.7 fL (9.4-12.4); Monocytes # 0.9 K/mcL (0.0-1.3); Monocytes % 8.3 %; Neutrophils # 7.4 K/mcL (1.6-8.9); Platelet Count 212 K/mcL (140-400); Red Blood Count 3.45 M/mcL (3.82-4.97); Red Cell Distribution Width 15.5 % (11.5-14.5)
[2017-01-24 03:35] LABS: BUN/Creatinine Ratio 23 (6-26); Blood Urea Nitrogen 12 mg/dL (7-20); Calcium 9.2 mg/dL (8.6-10.8); Carbon Dioxide 30 mEq/L (19-29); Chloride 106 mEq/L (98-109); Glucose 109 mg/dL (70-99); Magnesium 1.7 mg/dL (1.6-2.6); Osmolality,Calculated 296 (280-300); Potassium 4.1 mEq/L (3.5-4.5); Sodium 143 mEq/L (136-145); eGFR For African Americans > 60 (> 60); eGFR For Non-African Americans > 60 (> 60)
[2017-01-24] MEDS: levoFLOXacin 750 MG TABLET PO SCH (10:16)
[2017-01-24] MEDS: Baclofen 10 MG TABLET PO SCH ×3 (10:16→20:13)
[2017-01-24] MEDS: Aspirin Enteric Coated 81 MG Tablet PO SCH (10:16)
[2017-01-24] MEDS: Loratadine 10 MG TABLET PO SCH (10:17)
[2017-01-24] MEDS: Lisinopril 20 MG TABLET PO SCH (10:17)
[2017-01-24] MEDS: APIXABAN 5 MG TABLET PO SCH ×2 (10:17→20:13)
[2017-01-24] MEDS: Metoprolol XL (24 HR) Succ 25 MG TAB.ER.24H PO SCH (10:17)
[2017-01-24] MEDS: Furosemide 40 MG TABLET PO SCH ×2 (10:17→17:12)
[2017-01-24] MEDS: TECFIDERA PO SCH (10:22)
[2017-01-24] MEDS: TECFIDERA 240 MG PO SCH ×2 (12:20→20:15)
--- NOTE | 2017-01-24 14:45 | Electrocardiograph Report ---
[address] [address] Test Date: 2017-01-22 Pat Name: Amber Ndiaye Department: 104 Room: 2A43 Gender: F Maintenance Department Manager: : 1955 Requested By: Arturo Sena Order Number: [id number] Reading MD: Salvador Shipman Measurements Intervals [place] Rate: 75 P: 46 HI: 158 QRS: -39 QRSD: 178 T: 104 QT: 457 QTc: 486 Interpretive Statements SINUS RHYTHM POSSIBLE LEFT ATRIAL ENLARGEMENT MARKED LEFT AXIS DEVIATION LEFT BUNDLE BRANCH BLOCK Electronically Signed On 01-24-2017 14:43:30 EST by Salvador Shipman
--- NOTE | 2017-01-24 16:04 | Internal Med Progress Note ---
<Michael Durant - Last Filed: 01/24/17 16:02> Date of Encounter: 01/24/17 Time of Encounter: 16:02 - Assessment and plan (1) Acute encephalopathy Current Visit: No Status: Acute Assessment and plan: Improving. Patient hallucinations are improved. was at bedside who feels that she is back at her baseline other than mild hallucinations. Likely related to urinary tract infection. CT head and brain MRI was negative for anything acute. (2) UTI (urinary tract infection) Current Visit: Yes Status: Acute Assessment and plan: Secondary to Pseudomonas. Pansensitive. Patient transitioned to by mouth Levaquin today. Possible discharge tomorrow, we will treat for a total of 14 days given history of neurogenic bladder in the setting of MS. Qualifiers: Urinary tract infection type: acute cystitis Hematuria presence: with hematuria Qualified Code(s): N30.01 - Acute cystitis with hematuria (3) Multiple sclerosis Current Visit: No Status: Chronic Assessment and plan: Stable. Appears to be baseline. Continue home meds. (4) Atrial fibrillation Current Visit: No Status: Chronic Assessment and plan: Stable. Rate controlled. Continue beta ayan and Eliquis for anticoagulation. Qualifiers: Atrial fibrillation type: paroxysmal Qualified Code(s): I48.0 - Paroxysmal atrial fibrillation (5) Vaginal candidiasis Current Visit: Yes Status: Acute Assessment and plan: Likely related to recent antibiotic use. Patient given a one-time dose of fluconazole yesterday. She has no complaints today. (6) DVT prophylaxis Current Visit: Yes Status: Acute Assessment and plan: Currently on Eliquis - Subjective Interval history: Patient seen and examined at bedside. She states that she feels much better today. states that she had some mild hallucinations this morning, however per patient they are less scary. She still having good urine output. She has fever, chills, chest pain, shortness of breath, confusion. - Constitutional Vitals: Temp Pulse Resp BP Pulse Ox 97.4 F L 60 16 98/56 95 01/24/17 11:52 01/24/17 11:52 01/24/17 11:52 01/24/17 11:52 01/24/17 11:52 General appearance: Present: A&O X 3, pleasant, no acute distress - Respiratory Respiratory exam: Present: CTAB. Absent: rales, rhonchi, wheezes - Cardiovascular Cardiovascular exam: Present: RRR. Absent: gallop, rubs, systolic murmur - GI/Abdominal GI/Abdominal exam: Present: normal bowel sounds, soft. Absent: distended, tenderness - Extremities Exam Extremities exam: Present: warm. Absent: pedal edema, tenderness - Neurological Exam Neurological exam: Present: alert, oriented X3, no focal deficits (No acute changes) Internal Medicine: Result - Labs CBC & Chem 7: 01/24/17 02:55 01/24/17 02:55 Labs: Short CBC 01/24/17 Range/Units 02:55 WBC 10.3 (4.3-11.1) K/mcL Hgb 10.4 L (11.5-15.4) g/dL Hct 31.9 L (35.3-44.9) % Plt Count 212 (140-400) K/mcL Neutrophils # 7.4 (1.6-8.9) K/mcL BMP 01/24/17 02:55 Sodium 143 Potassium 4.1 Chloride 106 Carbon Dioxide 30 H BUN 12 Creatinine 0.52 L Glucose 109 H Calcium 9.2 - ABG Interpretation ABG results: PT/INR, D-dimer PT 15.0 Seconds (9.4-12.1) H 01/22/17 10:52 Consult Discharge Plan - Plan Referrals: Aissatou Delgado MD [Primary Care Provider] - <Chapincito Hammond - Last Filed: 01/24/17 20:04> Date of Encounter: 01/24/17 - Constitutional Vitals: Temp Pulse Resp BP Pulse Ox 97.9 F 88 16 115/77 98 01/24/17 16:21 01/24/17 16:21 01/24/17 16:21 01/24/17 16:21 01/24/17 16:21 Internal Medicine: Result - Labs CBC & Chem 7: 01/24/17 02:55 01/24/17 02:55 Labs: Short CBC 01/24/17 Range/Units 02:55 WBC 10.3 (4.3-11.1) K/mcL Hgb 10.4 L (11.5-15.4) g/dL Hct 31.9 L (35.3-44.9) % Plt Count 212 (140-400) K/mcL Neutrophils # 7.4 (1.6-8.9) K/mcL BMP 01/24/17 02:55 Sodium 143 Potassium 4.1 Chloride 106 Carbon Dioxide 30 H BUN 12 Creatinine 0.52 L Glucose 109 H Calcium 9.2 - ABG Interpretation ABG results: PT/INR, D-dimer PT 15.0 Seconds (9.4-12.1) H 01/22/17 10:52 - Attending Attestation I conducted a face to face diagnostic evaluation of this patient and my medical decision-making was reviewed with the Resident Physician, Dr. Michael Durant. I agree with the documented findings, disposition and treatment plan as described except to the extent set forth below: Patient is still confused. As reported by patient's her mental status has improved but she still has active visual hallucinations. Plan: Continue with antibiotics. Monitor clinically.
[2017-01-24] MEDS: risperiDONE 0.25 MG TABLET PO SCH (20:13)
[2017-01-25] MEDS ORDERED: Ziprasidone injection 20 MG/ML VIAL IM ONE (02:36)
--- NOTE | 2017-01-25 02:58 | Event Note ---
Date of Encounter: 01/25/17 Time of Encounter: 02:49 patient was seen upon request of RN. Patient has been Hallucinating, biting the nurses, family is upset as they were told patient will be [facility]. Chart reviewed and noted that patient came in with hallucinations and noted to have Pseudomonas UTI. It was documented that patient is improving and she will be discharged in am. says her hallucinations are actually worsening and he has noted any improvements. patient says she see people in room who are trying to kill her and she wants to go home. She is awake , agitated but not oriented to time, place , person. Phsyical examination is unremarkable with clear chest, Heart RRR,S1S2 , Abd soft . Due to advanced MS she is bed ridden and has one upper extremity weakness also. She did not cooperate in neuro exam and did not let me see her tongue if it is bitten. She is breathing compfortably and handling secreations well. 1- Hallucinations/ Acute Psychosis ? etiology. Patient is rather younger and already on abx x 3 days. Might need to broaden DDx. She has advanced MS though MRI did not show any new lesion but it was a non contrast MRI. Therefore we need to consider MS exacerbation. Will not give steroid now but rather suggest to involve Neurolgy in am first. For now give one dose of Geodone for symptomatic control for hallucinations and aggressive behavior. If symptoms are not better perhaps might have to transfer [facility] to her Neurologist. D/w family. Qs answered. d/w RN.
[2017-01-25] MEDS ORDERED: Water for inj. (sterile) 10 ML IV ONE (03:09)
[2017-01-25 04:14] LABS: Basophils # 0.1 K/mcL (0.0-0.2); Basophils % 0.5 %; Eosinophils # 0.3 K/mcL (0.0-0.6); Eosinophils % 1.8 %; Hematocrit 33.8 % (35.3-44.9); Hemoglobin 11.1 g/dL (11.5-15.4); Lymphocytes # 1.2 K/mcL (0.6-4.6); Lymphocytes % 8.5 %; Mean Corpuscular HGB Conc 32.8 g/dL (31.6-35.5); Mean Corpuscular Hemoglobin 30.2 pg (28.0-33.3); Mean Corpuscular Volume 91.8 fL (83.0-100.0); Mean Platelet Volume 9.9 fL (9.4-12.4); Monocytes % 7.1 %; Neutrophils # 11.5 K/mcL (1.6-8.9); Platelet Count 226 K/mcL (140-400); Red Blood Count 3.68 M/mcL (3.82-4.97); Red Cell Distribution Width 15.4 % (11.5-14.5); Segmented Neutrophils % 81.1 %
[2017-01-25 04:27] LABS: BUN/Creatinine Ratio 27 (6-26); Blood Urea Nitrogen 15 mg/dL (7-20); Calcium 9.8 mg/dL (8.6-10.8); Carbon Dioxide 30 mEq/L (19-29); Chloride 104 mEq/L (98-109); Glucose 118 mg/dL (70-99); Magnesium 1.6 mg/dL (1.6-2.6); Osmolality,Calculated 298 (280-300); Potassium 3.9 mEq/L (3.5-4.5); Sodium 143 mEq/L (136-145); eGFR For African Americans > 60 (> 60); eGFR For Non-African Americans > 60 (> 60)
[2017-01-25] MEDS: Lisinopril 20 MG TABLET PO SCH (09:44)
[2017-01-25] MEDS: APIXABAN 5 MG TABLET PO SCH ×2 (09:45→20:22)
[2017-01-25] MEDS: Metoprolol XL (24 HR) Succ 25 MG TAB.ER.24H PO SCH (09:45)
[2017-01-25] MEDS: Baclofen 10 MG TABLET PO SCH ×2 (09:45→14:12)
[2017-01-25] MEDS: levoFLOXacin 750 MG TABLET PO SCH (09:45)
[2017-01-25] MEDS: Aspirin Enteric Coated 81 MG Tablet PO SCH (09:45)
[2017-01-25] MEDS: Loratadine 10 MG TABLET PO SCH (09:45)
[2017-01-25] MEDS: Furosemide 40 MG TABLET PO SCH (09:49)
[2017-01-25] MEDS: TECFIDERA 240 MG PO SCH ×2 (10:22→20:22)
[2017-01-25] MEDS ORDERED: Haloperidol Lactate 5 MG/ML VIAL IM PRN (10:25)
--- NOTE | 2017-01-25 10:28 | Internal Med Progress Note ---
<Michael Durant - Last Filed: 01/25/17 10:48> Date of Encounter: 01/25/17 Time of Encounter: 10:26 - Assessment and plan (1) Acute encephalopathy Current Visit: No Status: Acute Assessment and plan: Slightly worse overnight. Patient hallucinations are improved this morning after Geodon but did have episodes overnight. Likely related to urinary tract infection, however acute delirium can also be contributing. CT head and brain MRI was negative for acute process. Will order Haldol 1 mg IM as needed for agitation. Patient is on amantadine which can cause psychosis, we will investigate how long the patient's been on this and may discontinue as it could be contributing to her symptoms. (2) UTI (urinary tract infection) Current Visit: Yes Status: Acute Assessment and plan: Secondary to Pseudomonas. Pansensitive. Patient transitioned to by mouth Levaquin today, today is day 2 of Levaquin. We will plan to treat for a total of 14 days given history of neurogenic bladder in the setting of MS. Qualifiers: Urinary tract infection type: acute cystitis Hematuria presence: with hematuria Qualified Code(s): N30.01 - Acute cystitis with hematuria (3) Multiple sclerosis Current Visit: No Status: Chronic Assessment and plan: Stable. Appears to be baseline. Continue home meds. If patient's symptoms do not improve tomorrow after 2 days of antibiotics will consider neurology and/or psychiatry consult (4) Atrial fibrillation Current Visit: No Status: Chronic Assessment and plan: Stable. Rate controlled. Continue beta ayan and Eliquis for anticoagulation. Qualifiers: Atrial fibrillation type: paroxysmal Qualified Code(s): I48.0 - Paroxysmal atrial fibrillation (5) Vaginal candidiasis Current Visit: Yes Status: Acute Assessment and plan: Likely related to recent antibiotic use. Patient given a one-time dose of fluconazole the day after admission. (6) DVT prophylaxis Current Visit: Yes Status: Acute Assessment and plan: Currently on Eliquis - Subjective Interval history: Patient seen and examined at bedside. Patient is somewhat lethargic today after receiving geodon last night for hallucinations and agitation. At this time she is awake and responsive to verbal stimuli but minimally verbal. She has no specific complaints. She denies hallucinations. - Constitutional Vitals: Temp Pulse Resp BP Pulse Ox 97.7 F 74 17 129/66 97 01/25/17 07:16 01/25/17 07:16 01/25/17 07:16 01/25/17 07:16 01/25/17 07:16 General appearance: Present: A&O X 3, pleasant, no acute distress - Respiratory Respiratory exam: Present: CTAB. Absent: rales, rhonchi, wheezes - Cardiovascular Cardiovascular exam: Present: irregular rhythm. Absent: gallop, rubs, systolic murmur - Extremities Exam Extremities exam: Present: warm. Absent: pedal edema, tenderness - Neurological Exam Neurological exam: Present: alert, altered (minimally verbal but responsive to verbal stimuli), no focal deficits Internal Medicine: Result - Labs CBC & Chem 7: 01/25/17 03:46 01/25/17 03:46 Labs: Short CBC 01/25/17 Range/Units 03:46 WBC 14.1 H (4.3-11.1) K/mcL Hgb 11.1 L (11.5-15.4) g/dL Hct 33.8 L (35.3-44.9) % Plt Count 226 (140-400) K/mcL Neutrophils # 11.5 H (1.6-8.9) K/mcL BMP 01/25/17 03:46 Sodium 143 Potassium 3.9 Chloride 104 Carbon Dioxide 30 H BUN 15 Creatinine 0.55 L Glucose 118 H Calcium 9.8 - ABG Interpretation ABG results: PT/INR, D-dimer PT 15.0 Seconds (9.4-12.1) H 01/22/17 10:52 Consult Discharge Plan - Plan Referrals: Aissatou Delgado MD [Primary Care Provider] - <Luis M Hernandez H - Last Filed: 01/25/17 12:36> Date of Encounter: 01/25/17 - Constitutional Vitals: Temp Pulse Resp BP Pulse Ox 98.3 F 84 17 117/77 96 01/25/17 11:47 01/25/17 11:47 01/25/17 11:47 01/25/17 11:47 01/25/17 11:47 Internal Medicine: Result - Labs CBC & Chem 7: 01/25/17 03:46 01/25/17 03:46 Labs: Short CBC 01/25/17 Range/Units 03:46 WBC 14.1 H (4.3-11.1) K/mcL Hgb 11.1 L (11.5-15.4) g/dL Hct 33.8 L (35.3-44.9) % Plt Count 226 (140-400) K/mcL Neutrophils # 11.5 H (1.6-8.9) K/mcL BMP 01/25/17 03:46 Sodium 143 Potassium 3.9 Chloride 104 Carbon Dioxide 30 H BUN 15 Creatinine 0.55 L Glucose 118 H Calcium 9.8 - ABG Interpretation ABG results: PT/INR, D-dimer PT 15.0 Seconds (9.4-12.1) H 01/22/17 10:52 - Attending Attestation Acute metabolic encephalopathy secondary to urinary tract infection with pansensitive pseudomonas Continue Levaquin Constipation, check ammonia and give 1 dose of lactulose I examined this patient and my medical decision-making was reviewed with the Resident Physician. I agree with the documented findings, disposition and treatment plan as described except to the extent set forth below.
[2017-01-25] MEDS ORDERED: Lactulose Oral Soln 20 GM/30 ML UDC PO ONE (12:29)
[2017-01-25] MEDS ORDERED: Baclofen 10 MG TABLET PO SCH (21:00)
[2017-01-26 06:49] LABS: Basophils # 0.1 K/mcL (0.0-0.2); Basophils % 0.3 %; Eosinophils % 0.2 %; Hemoglobin 11.5 g/dL (11.5-15.4); Immature Granulocytes % 0.8 % (0-4); Lymphocytes % 4.6 %; Mean Corpuscular HGB Conc 31.9 g/dL (31.6-35.5); Mean Platelet Volume 9.5 fL (9.4-12.4); Monocytes # 1.3 K/mcL (0.0-1.3); Monocytes % 5.8 %; Neutrophils # 19.3 K/mcL (1.6-8.9); Platelet Count 259 K/mcL (140-400); Red Blood Count 3.83 M/mcL (3.82-4.97); Red Cell Distribution Width 15.4 % (11.5-14.5); Segmented Neutrophils % 88.3 %
[2017-01-26] MEDS ORDERED: Clotrimazole Vag CRM 45 GM TUBE VG SCH (09:00)
[2017-01-26] MEDS ORDERED: Piperacillin/Tazobactam 3.375 GM/200 ML BAG IVPB SCH ×2 (09:00→16:00)
[2017-01-26 09:02] LABS: INR 1.6; Prothrombin Time 17.7 Seconds (9.4-12.1)
[2017-01-26 09:10] LABS: BUN/Creatinine Ratio 29 (6-26); Blood Urea Nitrogen 15 mg/dL (7-20); Calcium 10.1 mg/dL (8.6-10.8); Carbon Dioxide 30 mEq/L (19-29); Chloride 102 mEq/L (98-109); Glucose 113 mg/dL (70-99); Osmolality,Calculated 300 (280-300); Potassium 3.6 mEq/L (3.5-4.5); Sodium 144 mEq/L (136-145); eGFR For African Americans > 60 (> 60); eGFR For Non-African Americans > 60 (> 60)
[2017-01-26 09:11] LABS: Albumin 3.2 g/dL (3.5-5.0); Albumin/Globulin Ratio 0.8 (1.1-2.2); Bilirubin,Direct 0.2 mg/dL (0.0-0.5); Bilirubin,Indirect 0.3 mg/dL (0.0-1.2); Bilirubin,Total 0.5 mg/dL (0.2-1.2); Magnesium 1.7 mg/dL (1.6-2.6); Total Protein 7.2 g/dL (6.0-8.3)
--- NOTE | 2017-01-26 10:30 | Neurology - Consult Note ---
Date of Encounter: 01/26/17 Time of Encounter: 08:10 Assessment and Plan (1) Acute encephalopathy Current Visit: No Status: Acute This patient who has a advanced multiple sclerosis along with history of atrial fibrillation and with this recurrent UTIs is being admitted with UTI infection has been treated with antibiotics and having hallucinations. It is quite common in these patient who has very little cortical reserve in the brain and with any kind of infection or metabolic derangement they can start hallucinating and could have significant mental status changes. As she continued to hallucinating and has received neuroleptics and now is been having these twitching of the face which seems to be more like a complex partial seizures. She had one during the examination lasted about a minute and then resolved spontaneously. Suggested to give her IV or IM dose of Ativan she is getting EEG as well. She probably may need to be on some anticonvulsive medication if she continued to have more of these spells but at this time I would treated with symptomatically with IV Ativan only She has been treated with Risperdal as an outpatient and recently was given Geodon, suggest to discontinue as it may make her symptoms worse As long as last hallucinations are not too bad. Do not have to treat them as it is likely related to underlying infection and medication side effect If further has hallucinations get really bad can be treated with low-dose of Seroquel 25 mg at bedtime Continue to treat her underlying infection check for any other metabolic derangement and particularly make sure that patient is not dehydrated get swallowing evaluation and she is stable enough she can be giving oral fluids , otherwise she may need an IV fluids as dehydration would probably make her symptoms worse currently patient is nothing by mouth. No sign of MS exacerbation at this time do not think that we need to do anything for her MS right now considering that she has been having a lot of other issues. We will review the EEG if abnormal she may need to be on anticonvulsant medication at this point I suspect that could be related to the side effects of all these neuroleptics and antibiotics that she has been on (2) Multiple sclerosis Current Visit: No Status: Chronic She has advanced multiple sclerosis has been maintained on TECFEDIRA on hold for now can be resumed later (3) Nontraumatic subdural hygroma Current Visit: No Status: Acute was noted on imaging studies no evidence of any active bleed (4) UTI (urinary tract infection) Current Visit: Yes Status: Acute on antibiotics continue as per primary team may need UROLOGY consult for long preventive treatment options Qualifiers: Urinary tract infection type: acute cystitis Hematuria presence: with hematuria Qualified Code(s): N30.01 - Acute cystitis with hematuria History of Present Illness HPI: Ms. Ndiaye is a 61 year old female with past medical history of advance MS followed by [facility] neurology, recurrent UTIs, hypertension and A. fib admitted with UTI and hallucinations, as per records pt having UTI symptoms for the past week was on Augmentin. Once she was started on Augmentin she began to experience visual hallucinations so it was discontinued but at the same time she was also started on RISPERIDAL by her nurse practitioner. Augmentin was restarted and she began to hallucinate again. She also has not had any bowel movements for approximate 5 days. No fevers chills abdominal pain nausea vomiting. Patient was admitted to this hospital approximately a month ago and at that time she did have facial droop as well as A. fib RVR. She was initiated on beta ayan as well as anticoagulation.. She was seen by neurology and was diagnosed with nontraumatic subdural hygroma at the time of admission she was alert and oriented 3 however she does make inappropriate comments and was confused off and on, Since in the hospital she was started on Levaquin she was hallucinating again and she was given Geodon injection and after that she became more confused and according to the he has noted that she been having this twitching of the face off and on since then. Twitching predominantly on the left side of the face stating that she did not respond last up to several minutes and then resolve spontaneously she is very tired and usually do not respond much after the event. Earlier she had an MRI of the brain that did not show any acute abnormality except chronic changes related to her MS no evidence of any acute stroke on any active demyelinating plaque. She is also on amantadine as well as baclofen for her spasticity Past Med Surg Social Fam HX - Past Medical History Medical history: hypertension, kidney stones Psychiatric history: no psych history - Past Surgical History Surgical History: non-contributory - Social History Smoking Status: Former smoker Smokeless Tobacco Status: No Alcohol use: none Drug use: none Medications and Allergies Albuterol Sulfate [Albuterol Inhaler] 2 puff IH Q4H PRN 11/04/16 [History] Amantadine [Symmetrel] 100 mg PO BID 11/04/16 [History] Baclofen 20 mg PO TID 11/04/16 [History] Benazepril HCl [Lotensin] 40 mg PO DAILY 11/04/16 [History] BuPROPion XL (24 HR) [Wellbutrin XL] 150 mg PO DAILY 11/04/16 [History] Calcium Carbonate [Coral Calcium] 1,170 mg PO BID 11/04/16 [History] Dimethyl Fumarate [Tecfidera] 240 mg PO BID 11/04/16 [History] FLUoxetine HCl [PROzac] 20 mg PO DAILY 11/04/16 [History] Ibuprofen [Motrin] 800 mg PO BID PRN 11/04/16 [History] Loratadine [Claritin] 10 mg PO DAILY 11/04/16 [History] Apixaban [Eliquis] 5 mg PO BID #60 tablet 11/09/16 [Rx] Aspirin Enteric Coated [Aspirin EC] 81 mg PO DAILY tablet. 11/09/16 [Rx] Atorvastatin [Lipitor] 40 mg PO HS tablet 11/09/16 [Rx] Furosemide [Lasix] 40 mg PO BIDDIURETIC #60 tablet 11/09/16 [Rx] Lisinopril [Zestril] 20 mg PO DAILY tablet 11/09/16 [Rx] Metoprolol XL (24 HR) Succ [Toprol Xl] 25 mg PO DAILY #30 tab.er.24h 11/09/16 [ Rx] Potassium Chloride [K-Tab ER] 20 meq PO DAILY 01/22/17 [History] 3 Allergy/AdvReac Type Severity Reaction Status Date / Time latex Allergy Hives Verified 01/22/17 10:16 All Systems: A 10-system review of systems was performed and is negative for pertinent findings except as documented above in the HPI. Physical Examination - Vital Signs Vital Signs: Initial Vital Signs Temp Pulse Resp BP Pulse Ox 98 F 110 20 127/77 88 01/22/17 10:11 01/22/17 10:11 01/22/17 10:11 01/22/17 10:11 01/22/17 10:11 - Constitutional General appearance: comfortable - Neurologic Motor examination - right side: 02/18: deltoids, biceps, triceps, wrist flexion, wrist extension, customer training specialist, hip flexors, tibialis Anterior, quadriceps, toe extension (EHL), plantarflexion Motor examination - left side: 1/5: hip flexors, customer training specialist, quadriceps, tibialis Anterior, toe extension (EHL), plantarflexion, 2/5: triceps, wrist flexion, 3/5 : deltoids, biceps, wrist extension Reflex and gait examination: clonus Reflexes: Biceps: 2+, Triceps: 2+, Brachioradialis: 2+, Patella: 2+, Achilles: 2 + Mental Status Examination: awake, oriented to person, opens eyes to voice, opens eyes to noxious stimulation, makes eye contact, follows simple commands, localizes noxious stimulation Cranial nerve examination: PERRL, EOMI, no facial asymmetry is present (On formal neurological examination patient has a spastic contractures in all 4 extremities predominantly in both lower extremity and on the right side and very limited movement in her left upper extremity with significant atrophy of the muscles all over and she also noted to have a clonus in both lower extremities.) Results - Laboratory Findings CBC and BMP: 01/26/17 06:41 01/26/17 08:38 Abnormal lab findings: Abnormal lab results WBC 21.9 K/mcL (4.3-11.1) H D 01/26/17 06:41 RDW 15.4 % (11.5-14.5) H 01/26/17 06:41 Neutrophils # 19.3 K/mcL (1.6-8.9) H 01/26/17 06:41 PT 17.7 Seconds (9.4-12.1) H 01/26/17 08:38 APTT 44.1 Seconds (26.0-36.0) H 01/22/17 10:52 Carbon Dioxide 30 mEq/L (19-29) H 01/26/17 08:38 Creatinine 0.52 mg/dL (0.57-1.11) L 01/26/17 08:38 BUN/Creatinine Ratio 29 (6-26) H 01/26/17 08:38 Glucose 113 mg/dL (70-99) H 01/26/17 08:38 Troponin I 0.05 ng/mL (0-0.03) H* 01/23/17 06:08 Albumin 3.2 g/dL (3.5-5.0) L 01/26/17 08:38 Globulin 4.0 g/dL (2.4-3.5) H 01/26/17 08:38 Albumin/Globulin Ratio 0.8 (1.1-2.2) L 01/26/17 08:38 Urine Clarity Turbid (Clear) A 01/22/17 11:20 Urine Protein 30 mg/dL (Neg-Trace) H 01/22/17 11:20 Urine Blood Large (Negative) H 01/22/17 11:20 Urine Nitrite Positive (Negative) A 01/22/17 11:20 Ur Leukocyte Esterase Large (Negative) H 01/22/17 11:20 Urine Microscopic WBC TNTC per hpf (0-3) H 01/22/17 11:20 Ur Squamous Epith Cells Many per lpf (None-Few) H 01/22/17 11:20 Urine Bacteria Moderate per hpf (None-Few) H 01/22/17 11:20 Ur Culture Indicated? YES (NO) A 01/22/17 11:20 Carbamazepine 0.0 mcg/mL (4.0-12.0) L 01/22/17 11:38 [place] species DNA DETECTED (Not Detect) A 01/22/17 13:00 - Diagnostic Findings Additional findings: MRI of the brain showed No acute infarct. Numerous areas of encephalomalacia from remote insults. There is also multifocal small-vessel ischemic change and gliosis. Mixed signal extra-axial collections are again noted in the posterior frontal parietal regions. These do not appear grossly changed allowing for differences in slice selection. These are likely chronic. Consult Discharge Plan - Plan Referrals: Aissatou Delgado MD [Primary Care Provider] - 01/31/17 11:40 am (please follow up as schedule...)
--- NOTE | 2017-01-26 10:35 | Internal Med Progress Note ---
<Michael Durant - Last Filed: 01/26/17 11:41> Date of Encounter: 01/26/17 Time of Encounter: 10:33 - Assessment and plan (1) Acute encephalopathy Current Visit: No Status: Acute Assessment and plan: Worse this morning. Patient is now having episodes of facial twitching and rapid eye movements concerning for seizure activity. This was witnessed by myself and the neurologist at the bedside. We will discontinue all antipsychotics as they may be making her symptoms worse, also discontinued amantadine. Ativan when necessary. Her underlying infection is still likely driving all of these encephalopathic changes and given seizure activity we will broaden her antibiotics to Zosyn to cover for possible aspiration as well. Chest CT pending. Neurology is following. (2) Observed seizure-like activity Current Visit: Yes Status: Acute Assessment and plan: Patient was observed at bedside having facial twitching with rapid eye movements. This was also witnessed by the neurologist. Concern for seizure activity related to underlying infection. Will obtain EEG and will possibly start on antiepileptic medications pending EEG results. Neurology is following. (3) UTI (urinary tract infection) Current Visit: Yes Status: Acute Assessment and plan: Secondary to Pseudomonas. Pansensitive. Patient transitioned to by mouth Levaquin 2 days ago, given worsening clinical status will change to Zosyn, today is day 3 of antipseudomonal coverage. We will repeat cultures today. We will plan to treat for a total of 14 days given history of neurogenic bladder in the setting of MS. Qualifiers: Urinary tract infection type: acute cystitis Hematuria presence: with hematuria Qualified Code(s): N30.01 - Acute cystitis with hematuria (4) Multiple sclerosis Current Visit: No Status: Chronic Assessment and plan: MS appears stable, no evidence of exacerbation. Continue home meds. Neurology has been consulted. (5) Atrial fibrillation Current Visit: No Status: Chronic Assessment and plan: Stable. Rate controlled. Continue beta ayan and Eliquis for anticoagulation. Qualifiers: Atrial fibrillation type: paroxysmal Qualified Code(s): I48.0 - Paroxysmal atrial fibrillation (6) Vaginal candidiasis Current Visit: Yes Status: Acute Assessment and plan: Likely related to recent antibiotic use. Patient given a one-time dose of fluconazole the day after admission. Given the patient's worsening clinical status we will add vaginal antifungal cream. (7) DVT prophylaxis Current Visit: Yes Status: Acute Assessment and plan: Currently on Eliquis - Subjective Interval history: Patient seen and examined at bedside. Patient was seen having facial twitching and rapid eye movements. She is minimally responsive after this. Otherwise the patient had an uneventful night. - Constitutional Vitals: Temp Pulse Resp BP Pulse Ox 99.3 F 79 14 113/65 95 01/26/17 07:39 01/26/17 07:39 01/26/17 07:39 01/26/17 07:39 01/26/17 07:39 General appearance: Present: A&O X 3, pleasant, no acute distress - Respiratory Respiratory exam: Present: CTAB. Absent: rales, rhonchi, wheezes - Cardiovascular Cardiovascular exam: Present: RRR. Absent: gallop, rubs, systolic murmur - GI/Abdominal GI/Abdominal exam: Present: normal bowel sounds, soft. Absent: distended, tenderness - Neurological Exam Neurological exam: Present: altered. Absent: alert, oriented X3 Additional comments: Patient had facial muscle twitching that lasted approximately 1 minute. She was minimally responsive after this episode. She has chronic weakness of her upper and lower extremities is unchanged. Internal Medicine: Result - Labs CBC & Chem 7: 01/26/17 06:41 01/26/17 08:38 Labs: Short CBC 01/26/17 Range/Units 06:41 WBC 21.9 H D (4.3-11.1) K/mcL Hgb 11.5 (11.5-15.4) g/dL Hct 36.0 (35.3-44.9) % Plt Count 259 (140-400) K/mcL Neutrophils # 19.3 H (1.6-8.9) K/mcL BMP 01/26/17 08:38 Sodium 144 Potassium 3.6 Chloride 102 Carbon Dioxide 30 H BUN 15 Creatinine 0.52 L Glucose 113 H Calcium 10.1 Liver Function 01/26/17 Range/Units 08:38 Total Bilirubin 0.5 (0.2-1.2) mg/dL Direct Bilirubin 0.2 (0.0-0.5) mg/dL AST 23 (5-34) Units/L ALT 32 (0-55) Units/L Alkaline Phosphatase 104 (38-126) Units/L Albumin 3.2 L (3.5-5.0) g/dL - ABG Interpretation ABG results: PT/INR, D-dimer PT 17.7 Seconds (9.4-12.1) H 01/26/17 08:38 - Impressions Impressions Chest CT 01/26/17 08:45 IMPRESSION: 1. Cardiomegaly with no CT features to indicate aspiration. 2. Nonspecific esophageal wall thickening with endobronchial debris. D/ / 01/26/2017 09:42:26 Nick Cardoso MD / bcarter Interpreting Provider: Nick Cardoso MD Consult Discharge Plan - Plan Referrals: Aissatou Delgado MD [Primary Care Provider] - 01/31/17 11:40 am (please follow up as schedule...) <Luis M Hernandez H - Last Filed: 01/26/17 13:40> Date of Encounter: 01/26/17 - Constitutional Vitals: Temp Pulse Resp BP Pulse Ox 97.5 F L 81 15 123/78 100 01/26/17 12:05 01/26/17 12:05 01/26/17 12:05 01/26/17 12:05 01/26/17 12:05 Internal Medicine: Result - Labs CBC & Chem 7: 01/26/17 06:41 01/26/17 08:38 Labs: Short CBC 01/26/17 Range/Units 06:41 WBC 21.9 H D (4.3-11.1) K/mcL Hgb 11.5 (11.5-15.4) g/dL Hct 36.0 (35.3-44.9) % Plt Count 259 (140-400) K/mcL Neutrophils # 19.3 H (1.6-8.9) K/mcL BMP 01/26/17 08:38 Sodium 144 Potassium 3.6 Chloride 102 Carbon Dioxide 30 H BUN 15 Creatinine 0.52 L Glucose 113 H Calcium 10.1 Liver Function 01/26/17 Range/Units 08:38 Total Bilirubin 0.5 (0.2-1.2) mg/dL Direct Bilirubin 0.2 (0.0-0.5) mg/dL AST 23 (5-34) Units/L ALT 32 (0-55) Units/L Alkaline Phosphatase 104 (38-126) Units/L Albumin 3.2 L (3.5-5.0) g/dL Urine 01/26/17 Range/Units 12:30 Urine Color Red A (Yellow) Urine Clarity Turbid A (Clear) Urine pH 6.0 (5.0-8.0) pH Units Ur Specific Zap 1.028 H (1.010-1.025) Urine Protein 100 H (Neg-Trace) mg/dL Urine Glucose (UA) Normal (Normal) mg/dL - ABG Interpretation ABG results: PT/INR, D-dimer PT 17.7 Seconds (9.4-12.1) H 01/26/17 08:38 - Impressions Impressions Chest CT 01/26/17 08:45 IMPRESSION: 1. Cardiomegaly with no CT features to indicate aspiration. 2. Nonspecific esophageal wall thickening with endobronchial debris. D/ : / 01/26/2017 09:42:26 Nick Cardoso MD / [email or web address] Interpreting Provider: Nick Cardoso MD - Attending Attestation EEG pending I examined this patient and my medical decision-making was reviewed with the Resident Physician. I agree with the documented findings, disposition and treatment plan as described except to the extent set forth below.
[2017-01-26] MEDS ORDERED: Ringers Solution, Lactated 500 ML IVC ONE ×2 (10:48→11:00)
[2017-01-26] MEDS: Loratadine 10 MG TABLET PO SCH (11:03)
[2017-01-26] MEDS: Aspirin Enteric Coated 81 MG Tablet PO SCH (11:04)
[2017-01-26] MEDS: APIXABAN 5 MG TABLET PO SCH ×2 (11:04→21:17)
[2017-01-26] MEDS: TECFIDERA 240 MG PO SCH ×2 (11:04→21:32)
[2017-01-26] MEDS: Metoprolol XL (24 HR) Succ 25 MG TAB.ER.24H PO SCH (11:04)
[2017-01-26] MEDS: Baclofen 10 MG TABLET PO SCH (11:04)
[2017-01-26] MEDS: Lisinopril 20 MG TABLET PO SCH (11:04)
[2017-01-26] MEDS: Clotrimazole Vag CRM 45 GM TUBE VG SCH (11:05)
[2017-01-26 12:47] LABS: Bilirubin,Urine Negative (Negative); Blood,Urine Large (Negative); Clarity,Urine Turbid (Clear); Color,Urine Red (Yellow); Glucose,Urine (UA) Normal (Normal); Ketones,Urine Trace mg/dL (Negative); Leukocyte Esterase,Urine Large (Negative); Nitrite,Urine Negative (Negative); Protein,Urine 100 mg/dL (Neg-Trace); Specific Gravity,Urine 1.028 (1.010-1.025); Urobilinogen,Urine Normal (Normal)
[2017-01-26 12:54] LABS: Bacteria,Urine None Seen per hpf (None-Few); Hyaline Casts,Urine None Seen per lpf (None-Few); Squamous Epithelial Cell,Urine Many per lpf (None-Few); WBC,Urine TNTC per hpf (0-3)
[2017-01-26 13:42] LABS: RBC,Urine TNTC per hpf (0-3)
[2017-01-26 13:44] LABS: Renal Epithelial Cells,Urine Present per hpf (None-Few); Transitional Epi Cells,Urine Present per hpf (None-Few)
[2017-01-26] MEDS: *HR* LORazepam 2 MG/ML VIAL IVP PRN ×2 (14:48→21:32)
[2017-01-26] MEDS: Ringers Solution, Lactated 1,000 ML IVC SCH ×2 (16:39→21:17)
[2017-01-26] MEDS: Piperacillin/Tazobactam 3.375 GM/200 ML BAG IVPB SCH (17:59)
[2017-01-27] MEDS: Piperacillin/Tazobactam 3.375 GM/200 ML BAG IVPB SCH ×3 (02:09→17:39)
[2017-01-27 05:04] LABS: Hematocrit 29.7 % (35.3-44.9); Mean Corpuscular HGB Conc 32.7 g/dL (31.6-35.5); Mean Corpuscular Hemoglobin 30.4 pg (28.0-33.3); Mean Corpuscular Volume 93.1 fL (83.0-100.0); Mean Platelet Volume 10.1 fL (9.4-12.4); Platelet Count 216 K/mcL (140-400); Red Blood Count 3.19 M/mcL (3.82-4.97); Red Cell Distribution Width 15.7 % (11.5-14.5)
[2017-01-27 05:08] LABS: Hemoglobin 9.7 g/dL (11.5-15.4)
[2017-01-27 05:10] LABS: BUN/Creatinine Ratio 28 (6-26); Blood Urea Nitrogen 15 mg/dL (7-20); Calcium 9.7 mg/dL (8.6-10.8); Carbon Dioxide 31 mEq/L (19-29); Chloride 105 mEq/L (98-109); Glucose 98 mg/dL (70-99); Osmolality,Calculated 299 (280-300); Potassium 3.3 mEq/L (3.5-4.5); Sodium 144 mEq/L (136-145); eGFR For African Americans > 60 (> 60); eGFR For Non-African Americans > 60 (> 60)
[2017-01-27] MEDS: Ringers Solution, Lactated 1,000 ML IVC SCH (06:49)
[2017-01-27] MEDS ORDERED: Potassium Chloride Elixir 20 MEQ/15 ML UDC PO ONE (07:39)
[2017-01-27] MEDS ORDERED: Clotrimazole Vag CRM 45 GM TUBE VG SCH (09:07)
[2017-01-27] MEDS: Lisinopril 20 MG TABLET PO SCH (09:12)
[2017-01-27] MEDS: Loratadine 10 MG TABLET PO SCH (09:12)
[2017-01-27] MEDS: Baclofen 10 MG TABLET PO SCH (09:12)
[2017-01-27] MEDS: Aspirin Enteric Coated 81 MG Tablet PO SCH (09:12)
[2017-01-27] MEDS: Metoprolol XL (24 HR) Succ 25 MG TAB.ER.24H PO SCH (09:12)
[2017-01-27] MEDS: APIXABAN 5 MG TABLET PO SCH ×2 (09:12→20:26)
[2017-01-27] MEDS: TECFIDERA 240 MG PO SCH ×2 (09:12→20:26)
[2017-01-27] MEDS: Clotrimazole Vag CRM 45 GM TUBE VG SCH ×2 (09:16→09:36)
--- NOTE | 2017-01-27 09:27 | Internal Med Progress Note ---
<Michael Durant - Last Filed: 01/27/17 11:28> Date of Encounter: 01/27/17 Time of Encounter: 09:57 - Assessment and plan (1) Acute encephalopathy Current Visit: No Status: Acute Assessment and plan: Improved today. Likely related to underlying urinary tract infection Patient had episodes of facial twitching and rapid eye movements concerning for seizure activity, no episodes since yesterday evening. Ativan when necessary, avoid antipsychotic medications. Her underlying infection is still likely driving all of these encephalopathic changes and given seizure activity we switched to Zosyn yesterday, continue this for now, day 2 of Zosyn, day [address] of antibiotics overall. Chest CT pending showed possible debris within her bronchus but no evidence of pneumonia. Neurology is following. (2) Observed seizure-like activity Current Visit: Yes Status: Acute Assessment and plan: Patient was observed at bedside having facial twitching with rapid eye movements yesterday. This was also witnessed by the neurologist. Concern for seizure activity related to underlying infection. EEG report pending. Neurology is following. (3) UTI (urinary tract infection) Current Visit: Yes Status: Acute Assessment and plan: Secondary to Pseudomonas. Pansensitive. Patient transitioned to by mouth Levaquin 3 days ago, given worsening clinical status will change to Zosyn, today is day 4 of antipseudomonal coverage. Cultures repeated yesterday, results pending. We will plan to treat for a total of 14 days given history of neurogenic bladder in the setting of MS. Qualifiers: Urinary tract infection type: acute cystitis Hematuria presence: with hematuria Qualified Code(s): N30.01 - Acute cystitis with hematuria (4) Multiple sclerosis Current Visit: No Status: Chronic Assessment and plan: MS appears stable, no evidence of exacerbation. Continue home meds. Neurology is following. (5) Atrial fibrillation Current Visit: No Status: Chronic Assessment and plan: Stable. Rate controlled. Continue beta ayan and Eliquis for anticoagulation. Qualifiers: Atrial fibrillation type: paroxysmal Qualified Code(s): I48.0 - Paroxysmal atrial fibrillation (6) Vaginal candidiasis Current Visit: Yes Status: Acute Assessment and plan: Likely related to recent antibiotic use. Patient given a one-time dose of fluconazole the day after admission. Given the patient's worsening clinical status we will add vaginal antifungal cream, today is day 2 of 7. (7) DVT prophylaxis Current Visit: Yes Status: Acute Assessment and plan: Currently on Eliquis. - Subjective Interval history: Patient seen and examined at bedside. Patient was more awake and verbal today. She is alert to person only. She is still having visual hallucinations but these are pleasant for her and improving. No seizure activity since approximately 7 PM last night. - Constitutional Vitals: Temp Pulse Resp BP Pulse Ox 98.6 F 82 16 122/71 91 01/27/17 06:56 01/27/17 06:56 01/27/17 06:56 01/27/17 06:56 01/27/17 09:23 General appearance: Present: A&O X 3, pleasant, no acute distress - Respiratory Respiratory exam: Present: CTAB. Absent: rales, rhonchi, wheezes - Cardiovascular Cardiovascular exam: Present: irregular rhythm. Absent: gallop, rubs, systolic murmur - GI/Abdominal GI/Abdominal exam: Present: normal bowel sounds, soft. Absent: distended, tenderness - Extremities Exam Extremities exam: Present: warm. Absent: pedal edema, tenderness - Neurological Exam Neurological exam: Present: alert, altered. Absent: oriented X3 Additional comments: Chronic severe weakness in all extremities with chronic contractures. No acute neurologic deficits Internal Medicine: Result - Labs CBC & Chem 7: 01/27/17 04:30 01/27/17 04:30 Labs: Short CBC 01/27/17 Range/Units 04:30 WBC 9.6 D (4.3-11.1) K/mcL Hgb 9.7 L D (11.5-15.4) g/dL Hct 29.7 L (35.3-44.9) % Plt Count 216 (140-400) K/mcL BMP 01/27/17 04:30 Sodium 144 Potassium 3.3 L Chloride 105 Carbon Dioxide 31 H BUN 15 Creatinine 0.54 L Glucose 98 Calcium 9.7 Urine 01/26/17 Range/Units 12:30 Urine Color Red A (Yellow) Urine Clarity Turbid A (Clear) Urine pH 6.0 (5.0-8.0) pH Units Ur Specific [place] 1.028 H (1.010-1.025) Urine Protein 100 H (Neg-Trace) mg/dL Urine Glucose (UA) Normal (Normal) mg/dL - ABG Interpretation ABG results: PT/INR, D-dimer PT 17.7 Seconds (9.4-12.1) H 01/26/17 08:38 - Impressions Impressions Chest CT 01/26/17 08:45 IMPRESSION: 1. Cardiomegaly with no CT features to indicate aspiration. 2. Nonspecific esophageal wall thickening with endobronchial debris. D/ /26/2017 09:42:26 Nick Cardoso MD / bcarter Interpreting Provider: Nick Cardoso MD Consult Discharge Plan - Plan Referrals: Aissatou Delgado MD [Primary Care Provider] - 01/31/17 11:40 am (please follow up as schedule...) <Luis M Hernandez H - Last Filed: 01/27/17 14:52> Date of Encounter: 01/27/17 - Constitutional Vitals: Temp Pulse Resp BP Pulse Ox 97.7 F 79 14 117/67 96 01/27/17 11:14 01/27/17 11:14 01/27/17 11:14 01/27/17 11:14 01/27/17 11:14 Internal Medicine: Result - Labs CBC & Chem 7: 01/27/17 04:30 01/27/17 04:30 Labs: Short CBC 01/27/17 Range/Units 04:30 WBC 9.6 D (4.3-11.1) K/mcL Hgb 9.7 L D (11.5-15.4) g/dL Hct 29.7 L (35.3-44.9) % Plt Count 216 (140-400) K/mcL [facility] 01/27/17 04:30 Sodium 144 Potassium 3.3 L Chloride 105 Carbon Dioxide 31 H BUN 15 Creatinine 0.54 L Glucose 98 Calcium 9.7 - ABG Interpretation ABG results: PT/INR, D-dimer PT 17.7 Seconds (9.4-12.1) H 01/26/17 08:38 - Impressions Impressions Chest CT 01/26/17 08:45 IMPRESSION: 1. Cardiomegaly with no CT features to indicate aspiration. 2. Nonspecific esophageal wall thickening with endobronchial debris. D/ /26/2017 09:42:26 Nick Cardoso MD / dayday Interpreting Provider: Nick Cardoso MD - Attending Attestation Acute metabolic encephalopathy likely secondary to Pseudomonas UTI which did not improve on Levaquin Continue Zosyn day 2 Neurology recommendations appreciated I examined this patient and my medical decision-making was reviewed with the Resident Physician. I agree with the documented findings, disposition and treatment plan as described except to the extent set forth below.
--- NOTE | 2017-01-27 10:23 | EEG/EMG/Oth Biometrics Report ---
EEG Procedure Report Date of procedure: 01/26/17 EEG Procedure: Routine EEG Procedure Note: Patient with a history of advanced MS noted to have mental status changes hallucination and facial twitching Routine 21-channel digital EEG was obtained to rule out any seizure activity or focal abnormalities. FINDINGS: Background rhythm during awake stage shows poorly organized, low voltage fast beta activity in the anterior regions. No [id number] discharges or any lateralizing abnormalities are seen. Almost constant EMG artifacts and tremor artifacts are noted making the study suboptimal. Photic stimulation did not produce any abnormalities. Stage II sleep was not observed. The patient was noted by the welding technician to be restless and moving all the time during the study and having tremors of the mouth and arms. Stage II sleep was not achieved. IMPRESSION: Suboptimal study, no clear paroxysmal activities or epileptiform discharges were seen. Prominent beta activity in the anterior regions could be secondary to medication effect, and particularly from benzodiazepine and barbiturates use. Clinical correlation is suggested
--- NOTE | 2017-01-27 10:27 | Neurology Progress Note ---
Date of Encounter: 01/27/17 Time of Encounter: 07:30 Assessment and Plan (1) Acute encephalopathy Current Visit: No Status: Acute Slowly improving still having hallucinations but mental status changes has improved now she did have some facial twitching with the concern that this could be partial seizures she has received Ativan yesterday with improvement in her symptoms EEG did not show any continuous convulsive activity. She had received Geodon and was Risperdal earlier suspected could be related to extrapyramidal side effect that seems to be slowly improving If she had any further seizures perhaps she may need to be on some anticonvulsant medication but at the same time and trying to hold off and treating it symptomatically with Ativan but if she continued to have these twitching of the face she may need to be on some seizure meds otherwise continue to treat her underlying infectious metabolic abnormalities No history exam or imaging findings to be suggestive of MS exacerbation (2) Multiple sclerosis Current Visit: No Status: Chronic (3) Nontraumatic subdural hygroma Current Visit: No Status: Acute (4) UTI (urinary tract infection) Current Visit: Yes Status: Acute Qualifiers: Urinary tract infection type: acute cystitis Hematuria presence: with hematuria Qualified Code(s): N30.01 - Acute cystitis with hematuria Subjective Interval history: Patient is more awake today smiling though noted to have some confusion earlier is still having it off and on but not as bad. No further seizures reported a few twitching of the face noted earlier that has been resolved and now she did have an EEG that did not show any seizure type of activity except medication side effect Continued to be antibiotics continued to have hallucinations She had been off Geodon and Risperdal that was started earlier for hallucination Objective - Constitutional Vitals: Temp Pulse Resp BP Pulse Ox 98.6 F 82 16 122/71 91 01/27/17 06:56 01/27/17 06:56 01/27/17 06:56 01/27/17 06:56 01/27/17 09:23 - Neurological Exam Motor examination - left side: 1/5: hip flexors, pulmonology physician, quadriceps, tibialis Anterior, toe extension (EHL), plantarflexion, 2/5: triceps, wrist flexion, 3/5 : deltoids, biceps, wrist extension Reflex and gait examination: clonus Mental Status Examination: Present: awake, oriented to person, opens eyes to voice, opens eyes to noxious stimulation, makes eye contact, follows simple commands, localizes noxious stimulation Cranial nerve examination: Present: PERRL, EOMI, no facial asymmetry is present (On formal neurological examination patient has a spastic contractures in all 4 extremities predominantly in both lower extremity and on the right side and very limited movement in her left upper extremity with significant atrophy of the muscles all over and she also noted to have a clonus in both lower extremities.) Results - Laboratory Findings CBC and BMP: 01/27/17 04:30 01/27/17 04:30 Abnormal lab findings: Abnormal lab results RBC 3.19 M/mcL (3.82-4.97) L 01/27/17 04:30 Hgb 9.7 g/dL (11.5-15.4) L D 01/27/17 04:30 Hct 29.7 % (35.3-44.9) L 01/27/17 04:30 RDW 15.7 % (11.5-14.5) H 01/27/17 04:30 Neutrophils # 19.3 K/mcL (1.6-8.9) H 01/26/17 06:41 PT 17.7 Seconds (9.4-12.1) H 01/26/17 08:38 APTT 44.1 Seconds (26.0-36.0) H 01/22/17 10:52 Potassium 3.3 mEq/L (3.5-4.5) L 01/27/17 04:30 Carbon Dioxide 31 mEq/L (19-29) H 01/27/17 04:30 Creatinine 0.54 mg/dL (0.57-1.11) L 01/27/17 04:30 BUN/Creatinine Ratio 28 (6-26) H 01/27/17 04:30 Troponin I 0.05 ng/mL (0-0.03) H* 01/23/17 06:08 Albumin 3.2 g/dL (3.5-5.0) L 01/26/17 08:38 Globulin 4.0 g/dL (2.4-3.5) H 01/26/17 08:38 Albumin/Globulin Ratio 0.8 (1.1-2.2) L 01/26/17 08:38 Urine Color Red (Yellow) A 01/26/17 12:30 Urine Clarity Turbid (Clear) A 01/26/17 12:30 Ur Specific [place] 1.028 (1.010-1.025) H 01/26/17 12:30 Urine Protein 100 mg/dL (Neg-Trace) H 01/26/17 12:30 Urine Ketones Trace mg/dL (Negative) H 01/26/17 12:30 Urine Blood Large (Negative) H 01/26/17 12:30 Ur Leukocyte Esterase Large (Negative) H 01/26/17 12:30 Urine Microscopic RBC TNTC per hpf (0-3) H 01/26/17 12:30 Urine Microscopic WBC TNTC per hpf (0-3) H 01/26/17 12:30 Ur Squamous Epith Cells Many per lpf (None-Few) H 01/26/17 12:30 Carbamazepine 0.0 mcg/mL (4.0-12.0) L 01/22/17 11:38 [place] species DNA DETECTED (Not Detect) A 01/22/17 13:00 Consult Discharge Plan - Plan Referrals: Aissatou Delgado MD [Primary Care Provider] - 01/31/17 11:40 am (please follow up as schedule...)
[2017-01-27 15:43] LABS: Bilirubin,Urine Small (Negative); Blood,Urine Large (Negative); Clarity,Urine Turbid (Clear); Color,Urine Red (Yellow); Glucose,Urine (UA) Normal (Normal); Ketones,Urine Trace mg/dL (Negative); Leukocyte Esterase,Urine Large (Negative); Nitrite,Urine Positive (Negative); PH,Urine 6.5 pH Units (5.0-8.0); Protein,Urine 100 mg/dL (Neg-Trace); Specific Gravity,Urine 1.028 (1.010-1.025); Urobilinogen,Urine Normal (Normal)
[2017-01-27 15:45] LABS: Bacteria,Urine None Seen per hpf (None-Few); Hyaline Casts,Urine None Seen per lpf (None-Few); Squamous Epithelial Cell,Urine Many per lpf (None-Few); WBC,Urine TNTC per hpf (0-3)
[2017-01-27 16:01] LABS: RBC,Urine 30-50 per hpf (0-3)
[2017-01-27] MEDS: *HR* LORazepam 2 MG/ML VIAL IVP PRN (16:15)
[2017-01-28] MEDS ORDERED: Melatonin 3 MG TABLET PO PRN (02:20)
[2017-01-28] MEDS: Piperacillin/Tazobactam 3.375 GM/200 ML BAG IVPB SCH ×3 (02:25→17:29)
[2017-01-28 05:01] LABS: Basophils # 0.1 K/mcL (0.0-0.2); Eosinophils # 0.6 K/mcL (0.0-0.6); Hematocrit 29.7 % (35.3-44.9); Hemoglobin 9.5 g/dL (11.5-15.4); Immature Granulocytes % 0.5 % (0-4); Lymphocytes # 1.1 K/mcL (0.6-4.6); Lymphocytes % 11.9 %; Mean Corpuscular Hemoglobin 29.5 pg (28.0-33.3); Mean Corpuscular Volume 92.2 fL (83.0-100.0); Mean Platelet Volume 9.3 fL (9.4-12.4); Monocytes % 10.7 %; Neutrophils # 6.3 K/mcL (1.6-8.9); Platelet Count 219 K/mcL (140-400); Red Blood Count 3.22 M/mcL (3.82-4.97); Red Cell Distribution Width 15.7 % (11.5-14.5); Segmented Neutrophils % 68.9 %
[2017-01-28 05:26] LABS: BUN/Creatinine Ratio 31 (6-26); Blood Urea Nitrogen 16 mg/dL (7-20); Calcium 8.7 mg/dL (8.6-10.8); Carbon Dioxide 27 mEq/L (19-29); Chloride 109 mEq/L (98-109); Glucose 109 mg/dL (70-99); Osmolality,Calculated 300 (280-300); Potassium 3.5 mEq/L (3.5-4.5); Sodium 144 mEq/L (136-145); eGFR For African Americans > 60 (> 60); eGFR For Non-African Americans > 60 (> 60)
[2017-01-28] MEDS ORDERED: Furosemide 20 MG/2 ML VIAL IVP ONE ×2 (09:53→09:55)
[2017-01-28] MEDS: Aspirin Enteric Coated 81 MG Tablet PO SCH (09:59)
[2017-01-28] MEDS: Baclofen 10 MG TABLET PO SCH (10:00)
[2017-01-28] MEDS: APIXABAN 5 MG TABLET PO SCH (10:00)
[2017-01-28] MEDS: Metoprolol XL (24 HR) Succ 25 MG TAB.ER.24H PO SCH (10:00)
[2017-01-28] MEDS: Lisinopril 20 MG TABLET PO SCH (10:00)
[2017-01-28] MEDS: TECFIDERA 240 MG PO SCH (10:00)
[2017-01-28] MEDS: Loratadine 10 MG TABLET PO SCH (10:00)
[2017-01-28] MEDS: Clotrimazole Vag CRM 45 GM TUBE VG SCH (10:03)
--- NOTE | 2017-01-28 10:21 | Neurology Progress Note ---
Date of Encounter: 01/28/17 Time of Encounter: 07:45 Assessment and Plan (1) Continuous visual hallucinations Current Visit: Yes Status: Acute This patient continued to have visual hallucinations and confusions off and on she remained on antibiotics for her UTI/ Had been tried on different antibiotics at the same time she had been tried on different neuroleptics for her hallucination but none of them seemed to have helped in fact she did have some extrapyramidal symptoms from Geodon she had she has received earlier she was also on Risperdal that has been discontinued Last night she was tried on Seroquel without much help Long discussion with the patient's regarding treatment options suggested to get a secondary opinion for other treatment options at this time do not have much else to suggest 2 to the fact that she has not been responding and has side effects from other medications was quite upset earlier due to the fact that he was told that she did not have signs of Parkinson as it was a concern from him that she may had a Parkinson disease At the same time he is also upset that he has been cutting down her medication that was started by the neurologist at [facility] Though I have explained to him in quite detailing the last several days the midline to cut down these medications as they could be contributing to her hallucinations and particularly amantadine and baclofen that has been tapered off and once she is stable and she stopped hallucinating that could be restarted and should not be affecting her multiple sclerosis as it is only a symptomatic treatment for these symptoms I had a long conversation with him today along with the hospitalist team we all agreed that she probably would not benefit from transitioning to a tertiary care center due to her advanced symptoms of multiple sclerosis as well as recurrent UTIs and his visual hallucinations particularly need help from psychiatrist regarding treatment options MRI EEG results were explained to patient and all questions were answered (2) Acute encephalopathy Current Visit: No Status: Acute improving more awake now, but continued to have hallucinations (3) Multiple sclerosis Current Visit: No Status: Chronic stable, no acute lesion on MRI of brain noted no evidence of infarct (4) Nontraumatic subdural hygroma Current Visit: No Status: Acute (5) UTI (urinary tract infection) Current Visit: Yes Status: Acute Qualifiers: Urinary tract infection type: site unspecified Hematuria presence: with hematuria Qualified Code(s): N39.0 - Urinary tract infection, site not specified; R31.9 - Hematuria, unspecified; R31.9 - Hematuria, unspecified Subjective Interval history: Patient is more awake today BUT CONTINUED to have hallucinations, and confusion , last night tried on SEROQUEL according to has not helped at all, she was tried on ATIVAN made it worse. was on RISPEREDAL did;t help as out pt, also given GEODON which has caused twitching of face with concern of seizures, EEG was negative Continued to be antibiotics continued to have hallucinations Objective - Constitutional Vitals: Temp Pulse Resp BP Pulse Ox 98.2 F 90 17 133/68 96 01/28/17 08:49 01/28/17 08:49 01/28/17 08:49 01/28/17 08:49 01/28/17 08:49 - Neurological Exam Motor Examination: Present: other (limited neuro exam, alert and awake to person , follows some simple commands, moving left upper ext only rest are all contracture and spastic paresis) Motor examination - left side: 1/5: hip flexors, specialty finishing utility person, quadriceps, tibialis Anterior, toe extension (EHL), plantarflexion, 2/5: triceps, wrist flexion, 3/5 : deltoids, biceps, wrist extension Reflex and gait examination: clonus Mental Status Examination: Present: awake, oriented to person, opens eyes to voice, opens eyes to noxious stimulation, makes eye contact, follows simple commands, localizes noxious stimulation Cranial nerve examination: Present: PERRL, EOMI, no facial asymmetry is present (On formal neurological examination patient has a spastic contractures in all 4 extremities predominantly in both lower extremity and on the right side and very limited movement in her left upper extremity with significant atrophy of the muscles all over and she also noted to have a clonus in both lower extremities.) Results - Laboratory Findings CBC and BMP: 01/28/17 04:50 01/28/17 04:50 Abnormal lab findings: Abnormal lab results RBC 3.22 M/mcL (3.82-4.97) L 01/28/17 04:50 Hgb 9.5 g/dL (11.5-15.4) L 01/28/17 04:50 Hct 29.7 % (35.3-44.9) L 01/28/17 04:50 RDW 15.7 % (11.5-14.5) H 01/28/17 04:50 MPV 9.3 fL (9.4-12.4) L 01/28/17 04:50 PT 17.7 Seconds (9.4-12.1) H 01/26/17 08:38 APTT 44.1 Seconds (26.0-36.0) H 01/22/17 10:52 Creatinine 0.52 mg/dL (0.57-1.11) L 01/28/17 04:50 BUN/Creatinine Ratio 31 (6-26) H 01/28/17 04:50 Glucose 109 mg/dL (70-99) H 01/28/17 04:50 Troponin I 0.05 ng/mL (0-0.03) H* 01/23/17 06:08 Albumin 3.2 g/dL (3.5-5.0) L 01/26/17 08:38 Globulin 4.0 g/dL (2.4-3.5) H 01/26/17 08:38 Albumin/Globulin Ratio 0.8 (1.1-2.2) L 01/26/17 08:38 Urine Color Red (Yellow) A 01/27/17 15:30 Urine Clarity Turbid (Clear) A 01/27/17 15:30 Ur Specific [place] 1.028 (1.010-1.025) H 01/27/17 15:30 Urine Protein 100 mg/dL (Neg-Trace) H 01/27/17 15:30 Urine Ketones Trace mg/dL (Negative) H 01/27/17 15:30 Urine Blood Large (Negative) H 01/27/17 15:30 Urine Nitrite Positive (Negative) A 01/27/17 15:30 Urine Bilirubin Small (Negative) H 01/27/17 15:30 Ur Leukocyte Esterase Large (Negative) H 01/27/17 15:30 Urine Microscopic RBC 30-50 per hpf (0-3) H 01/27/17 15:30 Urine Microscopic WBC TNTC per hpf (0-3) H 01/27/17 15:30 Ur Squamous Epith Cells Many per lpf (None-Few) H 01/27/17 15:30 Carbamazepine 0.0 mcg/mL (4.0-12.0) L 01/22/17 11:38 [place] species DNA DETECTED (Not Detect) A 01/22/17 13:00 Consult Discharge Plan - Plan Referrals: Aissatou Delgado MD [Primary Care Provider] - 01/31/17 11:40 am (please follow up as schedule...)
--- NOTE | 2017-01-28 10:31 | Discharge Summary ---
<Michael Durant - Last Filed: 01/28/17 14:30> Date of Encounter: 01/28/17 Time of Encounter: 10:28 - Discharge Diagnosis (1) Acute encephalopathy Priority: Primary Status: Acute (2) Observed seizure-like activity Priority: Primary Status: Acute (3) UTI (urinary tract infection) Priority: Primary Status: Acute Qualifiers: Urinary tract infection type: site unspecified Hematuria presence: with hematuria Qualified Code(s): N39.0 - Urinary tract infection, site not specified; R31.9 - Hematuria, unspecified; R31.9 - Hematuria, unspecified (4) Multiple sclerosis Priority: Secondary Status: Chronic (5) Atrial fibrillation Priority: Secondary Status: Chronic Qualifiers: Atrial fibrillation type: paroxysmal Qualified Code(s): I48.0 - Paroxysmal atrial fibrillation (6) Vaginal candidiasis Priority: Secondary Status: Acute - Discharge Medications Allergies/Adverse Reactions: 3 Allergy/AdvReac Type Severity Reaction Status Date / Time latex Allergy Hives Verified 01/22/17 10:16 Procedures/tests Complete & Pending: Procedures Performed prior 72 hours Category Date Time Status CT chest w/o contrast [CT chest wo con] [CT] Routine Cat Scan 01/26/17 08:45 Completed Date of admission: 01/22/17 15:41 Primary care physician: Aissatou Delgado, Consults: 01/26/17 08:27 Consult to Neurology [CONS] Routine Consulting Provider: [facility] Reason for Consult: Hx of MS/?Seizure activity/Hallucinations Call Completed: Yes 01/26/17 12:49 Consult to Interpret Exam [CONS] Routine Consulting Provider: Kamaljit Calix I Consult to Interpret Exam: Interpret EEG Discharging clinician: Michael Durant Anticipated date of discharge: 01/28/17 - Patient Status Disposition: Transfer Short-Term Hosp Condition: Fair Functional capacity at discharge: wheelchair bound Overall status at discharge: patient is not back to baseline - Discharge Instructions Follow Up With: Aissatou Delgado MD [Primary Care Provider] - 01/31/17 11:40 am (please follow up as schedule...) Interval History: Continue exam at bedside. She is still encephalopathic with visual hallucinations. She is having abnormal oral movements. No seizure activity noted overnight. Hospital course: Ms. Ndiaye is a 61 year old female with history of MS and recurrent UTIs presented with hallucinations. Patient was having visual hallucinations that were unpleasant for her. Medical workup revealed a urinary tract infection with urine cultures eventually growing Pseudomonas which is pansensitive. Head CT and brain MRI were negative for any acute changes. The patient was initially started on Levaquin. The night of initiation of Levaquin the patient had facial twitching and rapid eye movements. This lasted a couple minutes and the patient was lethargic and minimally responsive afterwards. The patient was given Geodon for the symptoms which appear to exacerbate the symptoms. The following day these episodes appear to decrease in frequency and the patient appeared to be improving however the next day her symptoms worsen including worsening hallucinations and recurrent of the seizure-like activity. Neurology was consulted and witnessed one of these episodes who thought it was a complex partial seizure. EEG was performed that was negative for seizure activity at that time. Patient was placed on Ativan when necessary for this activity however it persisted. Repeat cultures were performed that were unremarkable. Patient seemed to be improving based on her laboratory values however clinically the symptoms persisted and therefore we felt that the patient served being transferred to the [facility] as her chronic neurologic care. After discussion with family the patient's was agreeable to transfer. - Time Spent with Patient Total time spent providing and/or coordinating discharge services: - Constitutional Vitals: Temp Pulse Resp BP Pulse Ox 98.2 F 90 17 133/68 96 01/28/17 08:49 01/28/17 08:49 01/28/17 08:49 01/28/17 08:49 01/28/17 08:49 General appearance: Present: A&O X 0, no acute distress - Respiratory Respiratory exam: Present: CTAB. Absent: rales, rhonchi, wheezes - Cardiovascular Cardiovascular exam: Present: irregular rhythm. Absent: gallop, rubs, systolic murmur - GI/Abdominal GI/Abdominal exam: Present: normal bowel sounds, soft. Absent: distended, tenderness - Extremities Exam Extremities exam: Present: warm. Absent: pedal edema, tenderness - Neurological Exam Neurological exam: Present: altered Additional comments: Chronic diffuse weakness. No acute changes. - Psychiatric Additional comments: Visual hallucinations present. <Luis M Hernandez - Last Filed: 01/28/17 14:46> Date of Encounter: 01/28/17 Procedures/tests Complete & Pending: Procedures Performed prior 72 hours Category Date Time Status CT chest w/o contrast [CT chest wo con] [CT] Routine Cat Scan 01/26/17 08:45 Completed Date of admission: 01/22/17 15:41 Primary care physician: Aissatou Delgado, Consults: 01/26/17 08:27 Consult to Neurology [CONS] Routine Consulting Provider: [facility] Reason for Consult: Hx of MS/?Seizure activity/Hallucinations Call Completed: Yes 01/26/17 12:49 Consult to Interpret Exam [CONS] Routine Consulting Provider: Kamaljit Calix I Consult to Interpret Exam: Interpret EEG Hospital course: Ms. Ndiaye is a 61 year old female - Time Spent with Patient Total time spent providing and/or coordinating discharge services: - Constitutional Vitals: Temp Pulse Resp BP Pulse Ox 97.4 F L 102 17 139/79 97 01/28/17 11:08 01/28/17 11:08 01/28/17 11:08 01/28/17 11:08 01/28/17 11:08 - Attending Attestation Acute encephalopathy likely secondary to UTI/Pseudomonas Not improving transfer to [facility] time spent : 40 min I examined this patient and my medical decision-making was reviewed with the Resident Physician. I agree with the documented findings, disposition and treatment plan as described except to the extent set forth below.
[2017-01-28 15:58] VITALS: BP 138/76
== END 2017-01-28 18:15 | disposition short-term general hospital (02) | DRG 689 ==
LOC: EMEROO 10:09 → 2ANU 10:09 → SUATTDRO 15:41
PROVIDERS: ADMIT Nurse Practitioner Acute Care; ATTEND Internal Medicine

== ENCOUNTER 2021-10-19 12:02 | Observation (INO) ==
[2021-10-19] MEDS ORDERED: 0.9 % Sodium Chloride 1,000 ML ONE ×2 (13:09→18:15)
[2021-10-19] MEDS ORDERED: 0.9 % Sodium Chloride 1,000 ML IVC SCH (13:29)
[2021-10-19 13:52] LABS: Bilirubin,Urine Negative (Negative); Blood,Urine Large (Negative); Clarity,Urine Ex.Turbid (Clear); Color,Urine Orange (Yellow); Glucose,Urine (UA) Normal (Normal); Ketones,Urine Negative (Negative); Leukocyte Esterase,Urine Large (Negative); Nitrite,Urine Negative (Negative); Protein,Urine 200 mg/dL (Neg-Trace)
[2021-10-19 14:01] LABS: Basophils # 0.1 K/mcL (0.0-0.2); Basophils % 0.3 %; Eosinophils # 0.3 K/mcL (0.0-0.6); Eosinophils % 1.6 %; Hematocrit 32.3 % (35.3-44.9); Hemoglobin 9.6 g/dL (11.5-15.4); Immature Granulocytes % 3.9 % (0-4); Lymphocytes # 1.3 K/mcL (0.6-4.6); Lymphocytes % 7.8 %; Mean Corpuscular HGB Conc 29.7 g/dL (31.6-35.5); Mean Corpuscular Hemoglobin 27.2 pg (28.0-33.3); Mean Corpuscular Volume 91.5 fL (83.0-100.0); Monocytes # 1.3 K/mcL (0.0-1.3); Neutrophils # 12.8 K/mcL (1.6-8.9); Nucleated Red Blood Cells 0.2 /100 WBC (0); Platelet Count 853 K/mcL (140-400); Red Blood Count 3.53 M/mcL (3.82-4.97); Red Cell Distribution Width 16.8 % (11.5-14.5); Segmented Neutrophils % 78.4 %; White Blood Count 16.3 K/mcL (4.3-11.1)
[2021-10-19 14:02] LABS: Bacteria,Urine Many per hpf (None-Few); RBC,Urine TNTC per hpf (0-3); Squamous Epithelial Cell,Urine Many per hpf (None-Few); WBC,Urine TNTC per hpf (0-3)
[2021-10-19 14:08] LABS: INR 1.5; Prothrombin Time 16.9 Seconds (9.4-12.1)
[2021-10-19 14:28] LABS: Influenza A PCR Negative (Negative); Influenza B PCR Negative (Negative); Resp. Syncytial Virus PCR Negative (Negative)
[2021-10-19 14:34] LABS: Alanine Aminotransferase 24 Units/L (7-52); Albumin 2.7 g/dL (3.5-5.7); Albumin/Globulin Ratio 0.5 (1.1-2.2); Alkaline Phosphatase 230 Units/L (34-104); Aspartate Amino Transferase 39 Units/L (13-39); BUN/Creatinine Ratio 27 (6-26); Bilirubin,Direct 0.2 mg/dL (0.0-0.2); Bilirubin,Indirect 0.2 mg/dL (0.0-1.0); Bilirubin,Total 0.4 mg/dL (0.3-1.0); Blood Urea Nitrogen 16 mg/dL (8-23); Calcium 8.7 mg/dL (8.6-10.3); Carbamazepine (Tegretol) 15 mcg/mL (4-12); Carbon Dioxide 24 mEq/L (23-29); Chloride 104 mEq/L (98-107); Globulin 5.4 g/dL (2.4-3.5); Glucose 114 mg/dL (70-105); Magnesium 1.9 mg/dL (1.6-2.6); Osmolality,Calculated 290 (280-300); Potassium 3.9 mEq/L (3.5-5.1); Sodium 139 mEq/L (136-145); Total Protein 8.1 g/dL (6.4-8.9); Troponin I 0.06 ng/mL (< 0.04)
[2021-10-19] MEDS ORDERED: cefTRIAXone 2,000 MG in 0.9 % Sodium Chloride 20 ML IVP ONE (14:54)
[2021-10-19 14:55] LABS: SARS-CoV-2 by PCR (In House) Negative (Negative)
[2021-10-19] MEDS ORDERED: CefTRIAXone 2,000 MG VIAL ONE (15:17)
[2021-10-19] MEDS ORDERED: Water for inj. (sterile) 20 ML IV ONE (15:17)
[2021-10-19] MEDS ORDERED: 0.9 % Sodium Chloride Mini Bag 100 ML ONE (18:15)
[2021-10-19] MEDS ORDERED: Piperacillin/Tazobactam 3.375 GM VIAL ONE (18:15)
[2021-10-19] MEDS: Apixaban 5 MG TABLET PO SCH (22:40)
[2021-10-19] MEDS: carBAMazepine 200 MG TABLET PO SCH (22:40)
[2021-10-20] MEDS ORDERED: Acetaminophen 325 MG TABLET PO PRN ×2 (02:57→03:31)
[2021-10-20] MEDS ORDERED: 0.9 % Sodium Chloride 1,000 ML IV ONE ×2 (02:57→04:30)
[2021-10-20] MEDS ORDERED: *HR* OxyCODONE/APAP 5/325 TABLET PO PRN ×2 (02:57→03:31)
[2021-10-20] MEDS ORDERED: Piperacillin/Tazobactam 3.375 GM in 0.9 % Sodium Chloride Mini Bag 100 ML IVPB SCH (04:00)
[2021-10-20 04:06] LABS: Hematocrit 30.8 % (35.3-44.9); Hemoglobin 9.1 g/dL (11.5-15.4)
[2021-10-20] MEDS: Piperacillin/Tazobactam 3.375 GM in 0.9 % Sodium Chloride Mini Bag 100 ML IVPB SCH ×4 (04:35→20:50)
[2021-10-20] MEDS: carBAMazepine 200 MG TABLET PO SCH ×3 (06:44→20:50)
[2021-10-20] MEDS: Aspirin 81 MG TAB.CHEW PO SCH (08:32)
[2021-10-20] MEDS: Apixaban 5 MG TABLET PO SCH (08:33)
[2021-10-20] MEDS: lisinopriL 5 MG TABLET PO SCH (08:34)
[2021-10-20] MEDS: BuPROPion XL (24 HR) 150 MG TABLET PO SCH (08:34)
[2021-10-21 02:11] LABS: Hemoglobin 9.5 g/dL (11.5-15.4)
[2021-10-21 02:12] LABS: Hematocrit 34.2 % (35.3-44.9); Mean Corpuscular HGB Conc 27.8 g/dL (31.6-35.5); Mean Corpuscular Hemoglobin 26.8 pg (28.0-33.3); Mean Corpuscular Volume 96.6 fL (83.0-100.0); Mean Platelet Volume 9.5 fL (9.4-12.4); Nucleated Red Blood Cells 0.3 /100 WBC (0); Platelet Count 489 K/mcL (140-400); Red Blood Count 3.54 M/mcL (3.82-4.97); Red Cell Distribution Width 17.3 % (11.5-14.5)
[2021-10-21 02:30] LABS: BUN/Creatinine Ratio 22 (6-26); Blood Urea Nitrogen 11 mg/dL (8-23); Calcium 8.3 mg/dL (8.6-10.3); Carbon Dioxide 19 mEq/L (23-29); Chloride 110 mEq/L (98-107); Glucose 93 mg/dL (70-105); Osmolality,Calculated 287 (280-300); Sodium 139 mEq/L (136-145)
[2021-10-21 03:07] LABS: Anisocytosis 1+ (Not Present); Hypochromasia Present (Not Present)
[2021-10-21 03:08] LABS: Eosinophils # 0.3 K/mcL (0.0-0.6); Lymphocytes # 1.4 K/mcL (0.6-4.6); Monocytes # 0.8 K/mcL (0.0-1.3); Neutrophils # 11.2 K/mcL (1.6-8.9); Reactive Lymphocytes Present (Not Present)
[2021-10-21] MEDS: carBAMazepine 200 MG TABLET PO SCH (04:11)
[2021-10-21] MEDS: Piperacillin/Tazobactam 3.375 GM in 0.9 % Sodium Chloride Mini Bag 100 ML IVPB SCH (04:11)
[2021-10-21 07:05] VITALS: BP 116/80; PULSE 87; TEMP 97.4; O2SAT 95
[2021-10-21] MEDS: BuPROPion XL (24 HR) 150 MG TABLET PO SCH (09:43)
[2021-10-21] MEDS: Aspirin 81 MG TAB.CHEW PO SCH (09:43)
[2021-10-21] MEDS: Apixaban 5 MG TABLET PO SCH (09:44)
[2021-10-21] MEDS: lisinopriL 5 MG TABLET PO SCH (09:44)
== END 2021-10-21 11:31 | disposition home or self-care (01) ==
LOC: EMEROOARM 12:02 → 2ANU 12:02 → SUATTDRO 10-20 02:21
PROVIDERS: ADMIT Internal Medicine; ATTEND Family Medicine